=== PATIENT | female | born 1935 | race Asian ===

== ENCOUNTER → 2024-06-12 | Outpatient (CLI) | payer MEDICARE, MEDICAID, SELFPAY ==
[2024-06-12 10:11] LABS: Collection Type, Urine Clean Catch
[2024-06-12 10:13] LABS: OBS Card Expiration Date 2026-09; OBS Card Lot # 23001; OBS Performed By LAB; OBS QC OK? Yes
[2024-06-12 10:50] LABS: Bilirubin,Urine Negative (Negative); Blood,Urine Negative (Negative); Clarity,Urine Clear (Clear/Hazy); Color,Urine Lt-Yellow (Lt Yel-Yel); Glucose, Urine Negative (Negative); Ketones,Urine Negative (Negative); Leukocyte Esterase,Urine Negative (Negative); Nitrite,Urine Negative (Negative); PH,Urine 6.5 (5.0-7.0); Protein,Urine Trace (Neg - Trace); RBC,Urine 2 /hpf (0-3); Specific Gravity,Urine 1.014 (1.001-1.035); Squamous Epithelial Cell,Urine 1 /hpf (0-5); Urobilinogen,Urine Negative mg/dL (0.0-1.0); WBC,Urine 1 /hpf (0-5)
[2024-06-12 10:54] LABS: Glucose Estimated Average 146 mg/dL (80-131); Hemoglobin A1C 6.7 % Hgb (4.8-6.0)
[2024-06-12 11:41] LABS: Alanine Aminotransferase 18 U/L (10-49); Albumin, Serum 4.6 gm/dL (3.4-4.8); Albumin/Globulin Ratio 1.6 (1.2-2.2); Alkaline Phosphatase 64 U/L (46-116); Anion Gap 8 (7-16); Aspartate Amino Transferase 11 U/L (0-34); BUN/Creatinine Ratio 20 Ratio (12-20); Bilirubin,Total 0.4 mg/dL (0.3-1.2); Blood Urea Nitrogen 14 mg/dL (9-23); Calcium 9.8 mg/dL (8.3-10.6); Calcium (Corrected) 9.8 mg/dL (8.5-10.1); Carbon Dioxide 27.4 mMol/L (20.0-31.0); Cardiac Risk Estimate 4.1 RATIO (3.7-5.6); Chloride 103 mMol/L (98-107); Cholesterol 220 mg/dL (132-200); Creatinine (Component) 0.7 mg/dL (0.6-1.3); Globulin 2.8 gm/dL (2.3-3.5); Glucose 113 mg/dL (74-106); HDL Cholesterol 54 mg/dL (40-60); LDL Cholesterol,Calculated 122 mg/dL (0-130); Osmolality,Calculated 277 (275-295); Potassium 4.6 mMol/L (3.4-5.1); Sodium 138 mMol/L (136-145); Total Protein 7.4 gm/dL (5.7-8.2); Triglycerides 219 mg/dL (30-150); eGFR > 60 See Note
[2024-06-12 13:45] LABS: OBS Developer Lot # 23003; Occult Blood, Stool Negative (Negative); Occult Blood, Stool #2 Negative (Negative); Occult Blood, Stool #3 Negative (Negative)
== END | disposition home or self-care (01) ==
LOC: COPL 09:10
PROVIDERS: PCP Internal Medicine; Referring Provider Internal Medicine; Visit Provider Internal Medicine
DX: I10 Essential (primary) hypertension (principal); E78.5 Hyperlipidemia, unspecified; E11.9 Type 2 diabetes mellitus without complications; Z12.11 Encounter for screening for malignant neoplasm of colon
CPT/HCPCS: 36415; 80053; 80061; 81001; 82270; 83036

== ENCOUNTER 2024-07-09 02:01 | Emergency (ER) | payer MEDICARE, MEDICAID, SELFPAY ==
[2024-07-09 02:02] VITALS: BMI 25.0
[2024-07-09 02:10] VITALS: BP 127/98; PULSE 123; RESP 18; TEMP 36.8; O2SAT 96
--- NOTE | 2024-07-09 02:17 | XR_ITS ---
Examination: PA and lateral chest 2 views TECHNIQUE: Upright PA and lateral chest 2 views Exam date 9 [facility] 5 2024 228 hours Comparison June 08, 2014 INDICATIONS: Chest pain today tachycardia FINDINGS: Mild elevation posterior left hemidiaphragm Normal heart size Minor atelectasis left base No lobar pneumonia or pulmonary edema IMPRESSION: No lobar pneumonia or pulmonary edema
--- NOTE | 2024-07-09 02:18 | PD.EDRME ---
Rapid Medical Screening Exam RME Arrival date/time: 07/09/24 02:01 89-year-old female with past medical history of diabetes and hypertension with recent change of blood pressure medication presents emergency department complaining of palpitations that started at 8 PM last night. Chief Complaint: General Adult/Misc Complain Vital signs: Vital Signs Temperature 98.2 F 07/09/24 02:10 Pulse Rate 123 H 07/09/24 02:10 Respiratory Rate 18 07/09/24 02:10 Blood Pressure 127/98 H 07/09/24 02:10 Pulse Oximetry (%) 96 07/09/24 02:10 Oxygen Delivery Method Room Air 07/09/24 02:10 Vital signs reviewed by provider: Yes
[2024-07-09 03:03] LABS: Basophils # (Auto) 0.1 Thou/mm3 (0.0-0.2); Basophils % (Auto) 1 % (0-2.5); Eosinophils # (Auto) 0.2 Thou/mm3 (0.0-0.5); Eosinophils % (Auto) 2 % (0-10); Hematocrit 40.7 % (36.0-46.0); Hemoglobin 13.8 g/dL (12.0-16.0); Immature Granulocytes % (Auto) 0 % (0-0); Immature Granulocytes Auto 0.03 Thou/mm3 (0.00-0.00); Lymphocytes # (Auto) 1.9 Thou/mm3 (1.0-4.8); Lymphocytes % (Auto) 19 % (10-50); Mean Corpuscular HGB Conc 33.9 g/dl (31.0-37.0); Mean Corpuscular Hemoglobin 27.5 pg (25.0-35.0); Mean Corpuscular Volume 81 fL (80-100); Monocytes # (Auto) 0.7 Thou/mm3 (0.0-0.8); Monocytes % (Auto) 7 % (0-12); Neutrophils # (Auto) 6.8 Thou/mm3 (1.8-7.7); Neutrophils % (Auto) 71 % (37-80); Nucleated Red Blood Cell % 0 /100 WBC (0); Platelet Count 288 Thou/mm3 (140-440); RDW Standard Deviation 41.4 fL (36.4-46.3); Red Blood Count 5.01 Miln/mm3 (4.00-5.20); White Blood Count 9.6 Thou/mm3 (3.6-11.0)
[2024-07-09 03:18] LABS: B-Type Natriuretic Peptide 36 pg/mL (0-100); INR 0.9 (0.9-1.3); Partial Thromboplastin Time 29.9 Seconds (22.0-36.0); Prothrombin Time 10.2 Seconds (9.0-12.2)
[2024-07-09 03:19] LABS: Alanine Aminotransferase 15 U/L (10-49); Albumin, Serum 4.9 gm/dL (3.4-4.8); Albumin/Globulin Ratio 1.4 (1.2-2.2); Alkaline Phosphatase 62 U/L (46-116); Anion Gap 9 (7-16); Aspartate Amino Transferase 23 U/L (0-34); BUN/Creatinine Ratio 19 Ratio (12-20); Bilirubin,Total 0.4 mg/dL (0.3-1.2); Blood Urea Nitrogen 13 mg/dL (9-23); Calcium 10.2 mg/dL (8.3-10.6); Calcium (Corrected) 10.2 mg/dL (8.5-10.1); Carbon Dioxide 24.6 mMol/L (20.0-31.0); Chloride 98 mMol/L (98-107); Creatinine (Component) 0.7 mg/dL (0.6-1.3); Estimated Creatinine Clearance 43.5 mL/min (>60); Globulin 3.4 gm/dL (2.3-3.5); Glucose 150 mg/dL (74-106); Magnesium 1.4 mg/dL (1.6-2.6); Osmolality,Calculated 267 (275-295); Potassium 3.9 mMol/L (3.4-5.1); Sodium 132 mMol/L (136-145); Total Protein 8.3 gm/dL (5.7-8.2); Troponin I 0.034 ng/mL (0.0-0.045); eGFR > 60 See Note
[2024-07-09 03:59] LABS: Collection Type, Urine Clean Catch
[2024-07-09 04:03] LABS: Bilirubin,Urine Negative (Negative); Blood,Urine Negative (Negative); Clarity,Urine Clear (Clear/Hazy); Color,Urine Colorless (Lt Yel-Yel); Glucose, Urine Negative (Negative); Ketones,Urine Negative (Negative); Leukocyte Esterase,Urine Positive (Negative); Nitrite,Urine Negative (Negative); Protein,Urine Trace (Neg - Trace); RBC,Urine 1 /hpf (0-3); Specific Gravity,Urine 1.008 (1.001-1.035); Squamous Epithelial Cell,Urine 1 /hpf (0-5); Urobilinogen,Urine Negative mg/dL (0.0-1.0); WBC,Urine 1 /hpf (0-5)
--- NOTE | 2024-07-09 05:39 | PC.NURSE ---
Pt to room 4 at this time from lobby; assumed care of pt.
[2024-07-09 05:55] VITALS: PULSE 87
[2024-07-09 05:57] VITALS: BP 181/78; PULSE 87; RESP 18; O2SAT 97
[2024-07-09 06:30] VITALS: BP 185/93; PULSE 85; RESP 20; O2SAT 95
--- NOTE | 2024-07-09 07:03 | PC.NURSE ---
Dr. Layton at the bedside at this time.
[2024-07-09 07:29] VITALS: PULSE 78
[2024-07-09 07:47] VITALS: BP 178/77; PULSE 77; RESP 16; TEMP 36.6; O2SAT 99
--- NOTE | 2024-07-09 07:53 | EDNOTE_ITS ---
ED Arrhythmia Palp. RME/HPI General Chief Complaint: General Adult/Misc Complain Stated Complaint: FEELS HEART BEATING FAST Time Seen by Provider: 07/09/24 06:51 Arrival date/time: 07/09/24 02:01 RME / HPI RME / HPI narrative: 07/09/24 02:01 89-year-old female with past medical history of diabetes and hypertension with recent change of blood pressure medication presents emergency department complaining of palpitations that started at [address] RUIZ MAIN ED EVALUATION 89 year old female with history of diabetes and hypertension presents to the ED for evaluation of palpitations beginning last night. Palpitations described as my heart is beating funny . Reportedly had a scheduled appointment with PCP Dr. Tracy yesterday to discuss elevated blood pressure readings at home and was started on Hydralazine; which she took the first dose of last night. Denies any chest pain, cough, shortness of breath, or other associated symptoms. Denies any history of similar palpitations. Related Data Home Medications ?Medication ?Instructions ?Recorded ?Confirmed amlodipine 10 mg tablet 10 mg PO QDAY 03/16/1803/16 aspirin 325 mg tablet 325 mg PO QDAY 03/16/1803/04 losartan 100 mg tablet 100 mg PO QDAY 03/16/1803/04 metformin 500 mg tablet 500 mg PO BID 03/16/1803/16 Previous Rx's ?Medication ?Instructions ?Recorded naproxen 500 mg tablet (Naprosyn) 500 mg PO BID PRN pa in #20 tabs 03/16/18 Allergies Allergy/AdvReac Type Severity Reaction Status Date / Time No Known Allergies Allergy Verified 07/09/24 02:05 Review of Systems Review of Systems Narrative Review of Systems: Gen: No fever, no chills, no weight loss EYES: No discharge, no visual changes, no pain HEENT: No ear pain, no congestion, no sore throat PULM: no shortness of breath, no cough, no congestion CV: No chest pain, +palpitations, no chest tightness GI: No nausea, no vomiting, no diarrhea, no pain, no constipation : No frequency, no urgency,? no dysuria Musc/skel: No joint pain, no back pain Skin: No rash, no ecchymosis, no lesions Neuro: No weakness, no headache Past Medical History Past Medical History CARDIAC: Positive Cardiac Disorders and Hypertension; Negative Congestive Heart Failure RESPIRATORY: Negative Chronic Obstructive Pulmonary Disease (COPD) GENITOURINARY: Negative Renal Disease ENDOCRINE: Positive Diabetes Mellitus Type 2; Negative Diabetes Mellitus Type 1 Social History SMOKING STATUS: Never smoker ED Exam Narrative Physical exam: GENERAL APPEARANCE: AxOx4, no obvious distress, nontoxic appearing HEENT: NC, AT. MMM. EOMI, clear conjunctiva, oropharynx clear. NECK: Supple without lymphadenopathy. No stiffness or restricted ROM. HEART: Normal rate and regular rhythm, normal S1/S1, no m/r/g LUNGS: CTAB, moving air well. No crackles or wheezes are heard. ABDOMEN: Soft, nontender, nondistended with good bowel sounds heard. BACK: No midline C/T/L spine pain or deformity, No CVAT, no obvious deformity. EXTREMITIES: Without cyanosis, clubbing or edema. MUSCULOSKELETAL: FROM of all major joints, no chest tenderness NEUROLOGICAL: Grossly nonfocal. Alert and oriented, moving all 4 extremities. CN not formally tested but appear grossly intact. Skin: Warm and dry without any rash. Course Course Course Narrative: chest xray ordered to help determine etiology of palpitations. Quality Measures none Orders Category Date Time Status EKG (ED ONLY) *Do not use* NOW Care 07/09/24 02:17 Completed EKG (ED Only) Stat Exams 07/09/24 02:17 Ordered XR chest 2V Stat Exams 07/09/24 02:17 Completed B-Type Natriuretic Peptide Stat Lab 07/09/24 02:48 Completed CBC Stat Lab 07/09/24 02:48 Completed Comprehensive Metabolic Panel Stat Lab 07/09/24 02:48 Completed Magnesium Stat Lab 07/09/24 02:48 Completed Partial Thromboplastin Time Stat Lab 07/09/24 02:48 Completed Prothrombin Time with INR Stat Lab 07/09/24 02:48 Completed Troponin I Stat Lab 07/09/24 02:48 Completed Urinalysis Stat Lab 07/09/24 03:50 Completed Reevaluation(s) Reevaluation #1: Patient remains clinically stable throughout the emergency department visit. We reviewed all the results, analysis, and treatment plans. I advised patient hold the Hydralazine this morning and contact her PCP today. Patient is amenable to discharge. Strict return precautions were outlined. Patient was discharged in stable condition. Time: 07:30 Vital Signs Vital signs: Vital Signs Temperature 98.2 F 07/09/24 02:10 Pulse Rate 123 H 07/09/24 02:10 Respiratory Rate 18 07/09/24 02:10 Blood Pressure 127/98 H 07/09/24 02:10 Pulse Oximetry (%) 96 07/09/24 02:10 Oxygen Delivery Method Room Air 07/09/24 02:10 Arrhythmia/Palpitations MDM Narrative MDM Narrative:: [place] am scribing for and in the presence of Dr. Ruiz. Patient data External records reviewed[place] [facility] [place] (I reviewed ED visit on 03/17/2018) Clinical information provided by:: patient Social determinants that could affect healthcare access:: none Patient has the following chronic illnesses:: HTN, DM How is presenting disease/condition affected by chronic disease/condition?: exacerbated by Evaluation data The following diagnostics were reviewed and interpreted by me:: lab results, radiology exam(s) and EKG tracing(s) (EKG @ 02:14 shows sinus tachycardia, rate 100, no acute ST or T-wave changes, no STEMI. ) Lab and/or radiology exams considered but not ordered:: None Interpretation Summary: Ordering Physician: Angelita GARCIA)Angel Date of Service: 07/09/24 Procedure(s): XR chest 2V Accession Number(s): [id number] cc: Shantanu Carlisle MD; Angelita GARCIA)Angel; Isak Tracy MD~ Examination: PA and lateral chest 2 views TECHNIQUE: Upright PA and lateral chest 2 views Exam date [address] [place] [address] 2024 hours Comparison June 08, 2014 INDICATIONS: Chest pain today tachycardia FINDINGS: Mild elevation posterior left hemidiaphragm Normal heart size Minor atelectasis left base No lobar pneumonia or pulmonary edema IMPRESSION: No lobar pneumonia or pulmonary edema Dictated By: Shantanu Carlisle MD Signed By: <Electronically signed by Shantanu Carlisle MD in OV> 07/09/24 0750 Medications / Prescriptions Medications or Prescriptions considered but not ordered:: None Medication administrations:: None Consultations Consultation(s) initiated? (list below): No Diagnosis Differential diagnosis arrhythmia/palpitations: palpitations, anxiety, sinus tachycardia, artial fibrillation, artial flutter, supraventricular tachycardia and ventricular tachycardia Most likely diagnosis given after review of the tests above:: Heart palpitations Admission Indicated Admission indicated?: not indicated Admission Request Was there a request for admission?: No Disposition Plan Disposition Plan: Discharge Discharge Attestation Discharge Attestation: The patient and all family members were given an opportunity to ask questions and understood the discharge instructions. Discharge instructions specifically effects, indications for sooner follow up or return to the emergency department, and the expected course of current diagnosis. Patient condition: Stable Discharge Plan Plan Patient Disposition: HOME (Self Care) Prescriptions/Referrals Prescriptions/Med Rec: No Action naproxen [Naprosyn] 500 mg tablet 500 mg PO BID PRN (Reason: pain) Qty: 20 0RF metformin 500 mg Tablet 500 mg PO BID amlodipine 10 mg Tablet 10 mg PO QDAY losartan 100 mg Tablet 100 mg PO QDAY aspirin 325 mg Tablet 325 mg PO QDAY Referrals: Isak Tracy MD [Primary Care Provider] - In 1 week Problem List Clinical Impression: Heart palpitations Patient/Caregiver Discharge Instructions Education Materials: ED Palpitations Additional Instructions: Follow-up with your primary care doctor, , today to review whether or not she wants you to continue the new medicines. It is unclear as to whether or not you had a side effect to the new medicine. Feel free return to the emergency department sooner symptoms worsen or if notes any new, concerning issues. Print Language: Slovak Stand Alone Forms: Vicky Award Info., Patient Portal Info Letter
== END 2024-07-09 07:47 | disposition home or self-care (01) ==
PROVIDERS: Emergency Provider Emergency Medicine; PCP Internal Medicine
DX: R00.2 Palpitations (principal); R00.0 Tachycardia, unspecified; I10 Essential (primary) hypertension; E11.9 Type 2 diabetes mellitus without complications
CPT/HCPCS: 36415; 71046; 80053; 81001; 83735; 83880; 84484; 85025; 85610; 85730; 93005; 99283

== ENCOUNTER → 2024-07-09 | Outpatient (CLI) | payer MEDICARE, MEDICAID, SELFPAY ==
[2024-07-09 15:22] LABS: Albumin, Serum 4.7 gm/dL (3.4-4.8); Anion Gap 8 (7-16); BUN/Creatinine Ratio 14 Ratio (12-20); Blood Urea Nitrogen 10 mg/dL (9-23); Calcium 9.5 mg/dL (8.3-10.6); Calcium (Corrected) 9.5 mg/dL (8.5-10.1); Carbon Dioxide 27.8 mMol/L (20.0-31.0); Chloride 97 mMol/L (98-107); Creatinine (Component) 0.7 mg/dL (0.6-1.3); Glucose 117 mg/dL (74-106); Osmolality,Calculated 266 (275-295); Phosphorous 3.5 mg/dL (2.4-5.1); Sodium 133 mMol/L (136-145); Uric Acid 5.5 mg/dL (3.1-7.8); eGFR > 60 See Note
[2024-07-22 06:57] LABS: Renin Activity, Plasma* 0.95 ng/mL/h (0.25-5.82)
== END | disposition home or self-care (01) ==
PROVIDERS: PCP Internal Medicine; Referring Provider Internal Medicine; Visit Provider Internal Medicine
DX: I10 Essential (primary) hypertension (principal)
CPT/HCPCS: 36415; 80069; 82533; 84244; 84550

== ENCOUNTER → 2024-07-11 | Outpatient (CLI) | payer MEDICARE, MEDICAID, SELFPAY ==
[2024-07-11 12:24] LABS: Misc Send Out* See Sep Rpt
[2024-07-11 13:40] LABS: Sodium, Urine Volume 1550 mL/24hr (600-1800)
[2024-07-11 13:42] LABS: Sodium,24hr Urine 40 mEq/24hr (40-220); Sodium,Urine 26 mMol/L (20-110)
[2024-07-16 17:49] LABS: Cortisol, 24-Hr Volume 1600 mL
[2024-07-16 23:35] LABS: Aldosterone, 24-Hr Volume 1600 mL
[2024-07-17 06:28] LABS: Aldosterone, 24-Hour Urine 3.5 mcg/24 h; Cortisol, Free, 24-Hour Urine 31.7 mcg/24 h (4.0-50.0); Creatinine, 24-Hour Urine 0.58 g/24 h (0.50-2.15); Creatinine, 24-Hour Urine 0.59 g/24 h (0.50-2.15)
[2024-07-17 13:52] LABS: Cat VMA Volume, 24Hr 1600 mL
[2024-07-18 06:45] LABS: Calculated Total (E+NE) 15 mcg/24 h (26-121); Creatinine, 24-Hour Urine 0.58 g/24 h (0.50-2.15); Dopamine, 24 hr Urine 107 mcg/24 h (52-480); Epinephrine, 24-Hour Urine <3 mcg/24 h (2-24); Norepinephrine, 24 hr Ur 15 mcg/24 h (15-100); VMA, 24-Hour Urine 3.1 mg/24 h (6 OR LESS)
[2024-07-18 13:47] LABS: Total Volume, 24H Urine 1600 mL
[2024-07-22 06:52] LABS: Dopamine, 24hr Urine* 108 mcg/24 h (52-480)
== END | disposition home or self-care (01) ==
LOC: SLDO 11:22
PROVIDERS: PCP Internal Medicine; Referring Provider Internal Medicine; Visit Provider Internal Medicine
DX: I10 Essential (primary) hypertension (principal)
CPT/HCPCS: 36415; 82088; 82384; 82530; 82542; 82570; 83835; 84300; 84585

== ENCOUNTER 2024-07-12 14:01 | Inpatient (IN) | payer OTHER, MEDICAID, MEDICARE, SELFPAY ==
[2024-07-12] VITALS (7 sets, daily range): BP systolic 138–179; BP diastolic 61–77; PULSE 82–97; RESP 16–23; TEMP 36.8–37.6; O2SAT 95–97; BMI 25.0
--- NOTE | 2024-07-12 14:38 | EKG_ITS ---
[facility] Test Date: 2024-07-12 Pat Name: ELIOT HAJI Department: Room: - Gender: Female [facility] [employer]: : 1935 Requested By: Anat Loaiza ([facility]) Frannie Order Number: [id number] Reading MD: Anat Loaiza ([facility]) M Measurements Intervals Imbler Rate: 85 P: 50 RI: 148 QRS: -35 QRSD: 82 T: 48 QT: 357 QTc: 425 Interpretive Statements SINUS RHYTHM LEFT AXIS DEVIATION [QRS AXIS < -30] NONSPECIFIC T-WAVE ABNORMALITY No previous ECG available for comparison /store/S0/[id number]/ecg/[id number].pdf
--- NOTE | 2024-07-12 14:38 | XR_ITS ---
Examination: AP chest single view Technique one AP portable upright chest single view Exam date and time: July 12, 2024 1528 hrs. Comparison July 09, 2024 Indications: Chest pain cardiac irregularity beginning this morning Findings: Mild prominence left ventricle Mild vascular congestion Elevation left hemidiaphragm No geno lobar pneumonia No pulmonary edema Impression: Mild vascular congestion
--- NOTE | 2024-07-12 14:38 | PD.EDRME ---
Rapid Medical Screening Exam RME Arrival date/time: 07/12/24 14:01 89-year-old female presents emergency department complaints of feeling chest pain, heart fluttering since this a.m. I have greeted and performed a focused initial assessment of this patient. Initial appropriate labs ordered at this time. A comprehensive ED assessment and evaluation of the patient and analysis of all test and completion of medical decision making process will be conducted by additional ED provider. Chief Complaint: General Adult/Misc Complain Time Seen by Provider: 07/12/24 14:27 Vital signs: Vital Signs Temperature 98.3 F 07/12/24 14:13 Pulse Rate 91 07/12/24 14:13 Respiratory Rate 16 07/12/24 14:13 Blood Pressure 138/61 H 07/12/24 14:13 Pulse Oximetry (%) 97 07/12/24 14:13 Oxygen Delivery Method Room Air 07/12/24 14:13
[2024-07-12 15:29] LABS: Basophils % (Auto) 0 % (0-2.5); Eosinophils # (Auto) 0.1 Thou/mm3 (0.0-0.5); Eosinophils % (Auto) 1 % (0-10); Hematocrit 34.3 % (36.0-46.0); Immature Granulocytes % (Auto) 0 % (0-0); Immature Granulocytes Auto 0.02 Thou/mm3 (0.00-0.00); Lymphocytes # (Auto) 1.3 Thou/mm3 (1.0-4.8); Lymphocytes % (Auto) 19 % (10-50); Mean Corpuscular Hemoglobin 28.1 pg (25.0-35.0); Mean Corpuscular Volume 80 fL (80-100); Monocytes # (Auto) 0.6 Thou/mm3 (0.0-0.8); Monocytes % (Auto) 9 % (0-12); Neutrophils # (Auto) 4.6 Thou/mm3 (1.8-7.7); Neutrophils % (Auto) 70 % (37-80); Nucleated Red Blood Cell % 0 /100 WBC (0); Platelet Count 278 Thou/mm3 (140-440); RDW Standard Deviation 41.1 fL (36.4-46.3); Red Blood Count 4.27 Miln/mm3 (4.00-5.20); White Blood Count 6.5 Thou/mm3 (3.6-11.0)
[2024-07-12 15:33] LABS: B-Type Natriuretic Peptide 188 pg/mL (0-100)
[2024-07-12 15:37] LABS: INR 0.9 (0.9-1.3); Prothrombin Time 10.1 Seconds (9.0-12.2)
[2024-07-12 15:39] LABS: Alanine Aminotransferase 14 U/L (10-49); Albumin, Serum 4.4 gm/dL (3.4-4.8); Albumin/Globulin Ratio 1.6 (1.2-2.2); Alkaline Phosphatase 57 U/L (46-116); Anion Gap 9 (7-16); Aspartate Amino Transferase 17 U/L (0-34); BUN/Creatinine Ratio 24 Ratio (12-20); Bilirubin,Total 0.3 mg/dL (0.3-1.2); Blood Urea Nitrogen 22 mg/dL (9-23); Carbon Dioxide 22.7 mMol/L (20.0-31.0); Chloride 87 mMol/L (98-107); Creatinine (Component) 0.9 mg/dL (0.6-1.3); Estimated Creatinine Clearance 33.8 mL/min (>60); Globulin 2.8 gm/dL (2.3-3.5); Glucose 150 mg/dL (74-106); Lipase 23 U/L (12-53); Magnesium 1.4 mg/dL (1.6-2.6); Osmolality,Calculated 246 (275-295); Potassium 3.9 mMol/L (3.4-5.1); Total Protein 7.2 gm/dL (5.7-8.2); Troponin I < 0.020 ng/mL (0.0-0.045); eGFR > 60 See Note
[2024-07-12 15:52] LABS: Sodium 119 mMol/L (136-145)
--- NOTE | 2024-07-12 15:57 | PD.EDCHEST ---
ED Chest Pain RME/HPI General Chief Complaint: General Adult/Misc Complain Stated Complaint: low blood pressure at home 81/49, feels tired Time Seen by Provider: 07/12/24 14:27 Arrival date/time: 07/12/24 14:01 RME / HPI RME / HPI narrative: 07/12/24 14:01 89-year-old female presents emergency department complaints of feeling chest pain, heart fluttering since this a.m. I have greeted and performed a focused initial assessment of this patient. Initial appropriate labs ordered at this time. A comprehensive ED assessment and evaluation of the patient and analysis of all test and completion of medical decision making process will be conducted by additional ED provider. DR. ANNE MAIN ED EVALUATION: 89 year old female presents to the Emergency Department with complaint of PMHx: Hypertension and diabetes. Right nephrectomy. Social Hx: No tobacco, alcohol, or substance use. Related Data Home Medications ?Medication ?Instructions ?Recorded ?Confirmed amlodipine 10 mg tablet 10 mg PO QDAY 03/16/18 03/16/18 aspirin 325 mg tablet 325 mg PO QDAY 03/16/18 03/16/18 losartan 100 mg tablet 100 mg PO QDAY 03/16/18 03/16/18 metformin 500 mg tablet 500 mg PO BID 03/16/18 03/16/18 Previous Rx's ?Medication ?Instructions ?Recorded naproxen 500 mg tablet (Naprosyn) 500 mg PO BID PRN pain #20 tabs 03/16/18 Allergies Allergy/AdvReac Type Severity Reaction Status Date / Time No Known Allergies Allergy Verified 07/12/24 14:05 Review of Systems Review of Systems Systems Reviewed: All systems reviewed, normal except as documented Narrative Review of Systems: GEN: No fever, no chills, no weight loss EYES: No discharge, no visual changes, no pain HEENT: No ear pain, no congestion, no sore throat PULM: No shortness of breath, no cough, no congestion CV: No chest pain, no dyspnea on exertion, no palpitations GI: No nausea, no vomiting, no diarrhea, no pain, no constipation : No frequency, no urgency and no dysuria MUSC/SKEL: No joint pain, no back pain SKIN: No rash PSYCH: No hallucinations, no depression HEME/LYMPH: No easy bleeding or bruising tendencies NEURO: No weakness, no headache Past Medical History Past Medical History CARDIAC: Positive Cardiac Disorders and Hypertension ENDOCRINE: Positive Diabetes Mellitus Type 2 Surgical History SURGICAL: Positive Nephrectomy (R kidney removal) Social History SMOKING STATUS: Never smoker SUBSTANCE USE: does not use ALCOHOL: Never ED Exam Narrative Physical exam: GENERAL APPEARANCE: alert and oriented x 4, well-developed, well-nourished, no acute distress VITALS: All vitals were reviewed and the pulse ox is 97% on room air, which is normal according to my interpretation. HEENT: Normocephalic, atraumatic; pupils equal, round, reactive to light; EOMI; mucous membranes pink, moist; oropharynx clear NECK: Supple LUNGS: CTABL; no wheezes, no rales, no rhonchi HEART: Regular rate, regular rhythm; normal S1, S2; no murmurs ABDOMEN: non distended; normal BS; soft, no tenderness, no guarding, no rebound; no masses, no organomegaly, no hernia BACK: no CVA tenderness EXTREMITIES: atraumatic; no edema NEUROLOGIC: awake; alert and oriented x4; cranial nerves II-XII grossly intact; no focal sensory or motor deficits PSYCHIATRIC: appropriate mood and affect SKIN: warm, dry, normal color; no rashes Course Quality Measures none Orders Category Date Time Status EKG (ED ONLY) *Do not use* NOW Care 07/12/24 14:38 Completed EKG (ED Only) Stat Exams 07/12/24 14:38 Draft XR chest 1V portable Stat Exams 07/12/24 14:38 Completed B-Type Natriuretic Peptide Stat Lab 07/12/24 14:56 Completed CBC Stat Lab 07/12/24 14:56 Completed Comprehensive Metabolic Panel Stat Lab 07/12/24 14:56 Completed Lipase Stat Lab 07/12/24 14:56 Completed Magnesium Stat Lab 07/12/24 14:56 Completed Prothrombin Time with INR Stat Lab 07/12/24 14:56 Completed Troponin I Stat Lab 07/12/24 14:56 Completed Sodium Chloride 0.9% 1000 ml [Ns] 1,000 ml Med 07/12/24 16:05 Discontinued IV 40 mls/hr Vital Signs Vital signs: Vital Signs Temperature 98.3 F 07/12/24 14:13 Pulse Rate 91 07/12/24 14:13 Respiratory Rate 16 07/12/24 14:13 Blood Pressure 138/61 H 07/12/24 14:13 Pulse Oximetry (%) 97 07/12/24 14:13 Oxygen Delivery Method Room Air 07/12/24 14:13 Chest Pain MDM Narrative MDM Narrative:: [place] am scribing for and in the presence of Dr. Anne. Patient data External records reviewed:: [facility] previous records (Reviewed last ED visit dated 07/09/24, discharged with the following: Heart palpitations.) Clinical information provided by:: patient Social determinants that could affect healthcare access:: none Patient has the following chronic illnesses:: Hypertension and diabetes. Right nephrectomy. How is presenting disease/condition affected by chronic disease/condition?: exacerbated by Evaluation data The following diagnostics were reviewed and interpreted by me:: lab results, radiology exam(s) and EKG tracing(s) Lab and/or radiology exams considered but not ordered:: none Interpretation Summary: EKG#1: EKG at 1442 hours. Interpreted by me: sinus rhythm, rate 85, baseline mild poor R wave progression, mild IVCD, no acute ischemic changes Medications / Prescriptions Medications or Prescriptions considered but not ordered:: none Medication administrations:: Medication Administration History Acetaminophen (Acetaminophen 325 Mg Tablet) 650 mg PO Q6H PRN PRN Reason: Pain 1-3 and/or Fever >100.1 Stop: 08/11/24 17:24 Dextrose (Dextrose 50%-Water Inj 50 Ml Syringe) 25 ml IV Q15MIN PRN PRN Reason: BG 50-70 responsive npo pt Stop: 08/11/24 17:38 Dextrose (Dextrose 50%-Water Inj 50 Ml Syringe) 50 ml IV Q15MIN PRN PRN Reason: BG <50 OR BG <70 & pt unresponsive Stop: 08/11/24 17:38 Glucagon (Glucagon Inj 1 Mg Vial) 1 mg IM Q15MIN PRN PRN Reason: BG <70, and no IV access Heparin Sodium (Porcine) (Heparin Sod Inj 5000 Unit/Ml Vial) 5,000 unit SC Q8HR JOE Stop: 07/26/24 21:59 Sodium Chloride (Ns) 1,000 mls @ 75 mls/hr IV .[id number] ONE Stop: 07/13/24 05:24 Last Admin: 07/12/24 17:36 Dose: 75 mls/hr Documented By: GM Magnesium Sulfate (Magnesium Sulfate Ivpb) 4 gm in 50 mls @ 12.5 mls/hr IV X1 ONE Stop: 07/12/24 21:39 Insulin Human Lispro (Insulin Lispro (Admelog) 1 Unit/0.01 Ml Unit) 0 unit SC ACHS [facility]; Protocol Stop: 08/11/24 20:59 Nifedipine (Nifedipine Xl 30 Mg Tabcr) 90 mg PO QDAY JOE Stop: 08/12/24 08:59 Ondansetron HCl (Ondansetron Inj 2 Mg/Ml Inj 2 Ml) 4 mg IV Q6H PRN; Protocol PRN Reason: NAUSEA OR VOMITING Stop: 08/11/24 17:24 Sennosides (Senna Tablet) 1 tab PO QDAY JOE; Protocol Stop: 08/12/24 08:59 Discontinued Medications Sodium Chloride (Ns) 1,000 mls @ 40 mls/hr IV .Q24H ONE Stop: 07/13/24 16:04 Last Infusion: 07/12/24 17:35 Dose: 0 mls/hr Documented By: Admin: 07/12/24 16:16 Dose: 40 mls/hr Documented By: CHI see above if any Consultations Consultation(s) initiated? (list below): Yes Consultation #1 (Physician, Specialty, Details): Discussed test HPI, PMHx, lab, radiology results and/or management with hospitalist. Will admit for further evaluation and management. Accepts patient for admission. Time: 17:20 Diagnosis Chest Pain Differential Diagnosis: atypical chest pain, costochondritis, chest pain and other (palpitations) Most likely diagnosis given after review of the tests above:: Hyponatremia Restless Hypomagnesemia Admission Indicated Admission indicated?: indicated Admission Request Was there a request for admission?: Yes Admission Attestation Admission request attestation: Discussed case with [] from Hospitalist service regarding admission. Discussed patients ED course, exam findings, labs, and radiology results. The Hospitalist [agrees,declines] to accept the patient for admission. Disposition Plan Disposition Plan: Admit Discharge Plan Plan Patient Disposition: Admit Acute Care w/in Hospital Problem List Clinical Impression: Hyponatremia, Restless, Hypomagnesemia
--- NOTE | 2024-07-12 16:00 | PD.EDWEAK ---
ED Weakness RME/HPI General Chief complaint: General Adult/Misc Complain Stated complaint: low blood pressure at home 81/49, feels tired Time Seen by Provider: 07/12/24 14:27 Arrival date/time: 07/12/24 14:01 RME / HPI RME / HPI Narrative: 07/12/24 14:01 89-year-old female presents emergency department complaints of feeling chest pain, heart fluttering since this a.m. I have greeted and performed a focused initial assessment of this patient. Initial appropriate labs ordered at this time. A comprehensive ED assessment and evaluation of the patient and analysis of all test and completion of medical decision making process will be conducted by additional ED provider. DR. BULLOCK MAIN ED EVALUATION: 89 year old female presents to the Emergency Department with complaint of restlessness and shaking since starting new medications 3 days ago. Patient has a history of hypertension takes losartan per Dr. Tracy and clonidine per Dr. Sultana. Patient states she was seen in the ED 3 days ago then followed up with Dr. Tracy who started her on nifedipine and hydralazine. On the same day she followed up with Dr. Sultana who started her on hydrochlorothiazide. PMHx: Hypertension and diabetes Social Hx: No tobacco, alcohol, or substance use. Related Data Home Medications ?Medication ?Instructions ?Recorded ?Confirmed amlodipine 10 mg tablet 10 mg PO QDAY 03/16/18 03/16/18 aspirin 325 mg tablet 325 mg PO QDAY 03/16/18 03/16/18 losartan 100 mg tablet 100 mg PO QDAY 03/16/18 03/16/18 metformin 500 mg tablet 500 mg PO BID 03/16/18 03/16/18 Previous Rx's ?Medication ?Instructions ?Recorded naproxen 500 mg tablet (Naprosyn) 500 mg PO BID PRN pain #20 tabs 03/16/18 Allergies Allergy/AdvReac Type Severity Reaction Status Date / Time No Known Allergies Allergy Verified 07/12/24 14:05 Review of Systems Review of Systems Systems Reviewed: All systems reviewed, normal except as documented Narrative Review of Systems: GEN: No fever, no chills, no weight loss EYES: No discharge, no visual changes, no pain HEENT: No ear pain, no congestion, no sore throat PULM: No shortness of breath, no cough, no congestion CV: No chest pain, no dyspnea on exertion, no palpitations GI: No nausea, no vomiting, no diarrhea, no pain, no constipation : No frequency, no urgency and no dysuria MUSC/SKEL: No joint pain, no back pain SKIN: No rash PSYCH: No hallucinations, no depression HEME/LYMPH: No easy bleeding or bruising tendencies NEURO: No weakness, no headache, + restlessness and shaking (see HPI) Past Medical History Past Medical History CARDIAC: Positive Cardiac Disorders and Hypertension ENDOCRINE: Positive Diabetes Mellitus Type 2 Surgical History SURGICAL: Positive Nephrectomy (R kidney removal) Social History SMOKING STATUS: Never smoker SUBSTANCE USE: does not use ALCOHOL: Never ED Exam Narrative Physical exam: GENERAL APPEARANCE: alert and oriented x 4, well-developed, well-nourished, no acute distress VITALS: All vitals were reviewed and the pulse ox is 97% on room air, which is normal according to my interpretation. HEENT: Normocephalic, atraumatic; pupils equal, round, reactive to light; EOMI; mucous membranes pink, moist; oropharynx clear NECK: Supple LUNGS: CTABL; no wheezes, no rales, no rhonchi HEART: Regular rate, regular rhythm; normal S1, S2; no murmurs ABDOMEN: non distended; normal BS; soft, no tenderness, no guarding, no rebound; no masses, no organomegaly, no hernia BACK: no CVA tenderness EXTREMITIES: atraumatic; no edema NEUROLOGIC: awake; alert and oriented x4; cranial nerves II-XII grossly intact; no focal sensory or motor deficits PSYCHIATRIC: appropriate mood and affect SKIN: warm, dry, normal color; no rashes Course Quality Measures none Orders Category Date Time Status EKG (ED ONLY) *Do not use* NOW Care 07/12/24 14:38 Completed EKG (ED Only) Stat Exams 07/12/24 14:38 Draft XR chest 1V portable Stat Exams 07/12/24 14:38 Completed B-Type Natriuretic Peptide Stat Lab 07/12/24 14:56 Completed CBC Stat Lab 07/12/24 14:56 Completed Comprehensive Metabolic Panel Stat Lab 07/12/24 14:56 Completed Lipase Stat Lab 07/12/24 14:56 Completed Magnesium Stat Lab 07/12/24 14:56 Completed Prothrombin Time with INR Stat Lab 07/12/24 14:56 Completed Troponin I Stat Lab 07/12/24 14:56 Completed Sodium Chloride 0.9% 1000 ml [Ns] 1,000 ml Med 07/12/24 16:05 Discontinued IV 40 mls/hr Vital Signs Vital signs: Vital Signs Temperature 98.3 F 07/12/24 14:13 Pulse Rate 91 07/12/24 14:13 Respiratory Rate 16 07/12/24 14:13 Blood Pressure 138/61 H 07/12/24 14:13 Pulse Oximetry (%) 97 07/12/24 14:13 Oxygen Delivery Method Room Air 07/12/24 14:13 Weakness MDM Narrative MDM Narrative:: Sodium 119 today. Sodium 133 on 07/09/2024. Acute hyponatremia likely cause of current symptoms. Patient data External records reviewed:: [facility] previous records (Reviewed last ED visit dated 07/09/24, discharged with the following: Heart palpitations.) Clinical information provided by:: patient Social determinants that could affect healthcare access:: none Patient has the following chronic illnesses:: Hypertension and diabetes How is presenting disease/condition affected by chronic disease/condition?: exacerbated by Evaluation data The following diagnostics were reviewed and interpreted by me:: lab results, radiology exam(s) and EKG tracing(s) (EKG#1: EKG at 1442 hours. Interpreted by me: sinus rhythm, rate 85, baseline mild poor R wave progression, mild IVCD, no acute ischemic changes) Lab and/or radiology exams considered but not ordered:: none Interpretation Summary: Procedure(s): XR chest 1V portable Accession Number(s): [id number] cc: Shantanu Carlisle MD; Isak Tracy MD; Anat Loaiza~ Examination: AP chest single view Technique one AP portable upright chest single view Exam date and time: July 12, 2024 1528 hrs. Comparison July 09, 2024 Indications: Chest pain cardiac irregularity beginning this morning Findings: Mild prominence left ventricle Mild vascular congestion Elevation left hemidiaphragm No geno lobar pneumonia No pulmonary edema Impression: Mild vascular congestion Dictated By: Shantanu Carlisle MD Medications / Prescriptions Medications or Prescriptions considered but not ordered:: none Medication administrations:: Medication Administration History Acetaminophen (Acetaminophen 325 Mg Tablet) 650 mg PO Q6H PRN PRN Reason: Pain 1-3 and/or Fever >100.1 Stop: 08/11/24 17:24 Dextrose (Dextrose 50%-Water Inj 50 Ml Syringe) 25 ml IV Q15MIN PRN PRN Reason: BG 50-70 responsive npo pt Stop: 08/11/24 17:38 Dextrose (Dextrose 50%-Water Inj 50 Ml Syringe) 50 ml IV Q15MIN PRN PRN Reason: BG <50 OR BG <70 & pt unresponsive Stop: 08/11/24 17:38 Glucagon (Glucagon Inj 1 Mg Vial) 1 mg IM Q15MIN PRN PRN Reason: BG <70, and no IV access Heparin Sodium (Porcine) (Heparin Sod Inj 5000 Unit/Ml Vial) 5,000 unit SC Q8HR JOE Stop: 07/26/24 21:59 Sodium Chloride (Ns) 1,000 mls @ 75 mls/hr IV .[id number] ONE Stop: 07/13/24 05:24 Last Admin: 07/12/24 17:36 Dose: 75 mls/hr Documented By: GM Magnesium Sulfate (Magnesium Sulfate Ivpb) 4 gm in 50 mls @ 12.5 mls/hr IV X1 ONE Stop: 07/12/24 21:39 Insulin Human Lispro (Insulin Lispro (Admelog) 1 Unit/0.01 Ml Unit) 0 unit SC ACHS [facility]; Protocol Stop: 08/11/24 20:59 Nifedipine (Nifedipine Xl 30 Mg Tabcr) 90 mg PO QDAY JOE Stop: 08/12/24 08:59 Ondansetron HCl (Ondansetron Inj 2 Mg/Ml Inj 2 Ml) 4 mg IV Q6H PRN; Protocol PRN Reason: NAUSEA OR VOMITING Stop: 08/11/24 17:24 Sennosides (Senna Tablet) 1 tab PO QDAY [facility]; Protocol Stop: 08/12/24 08:59 Discontinued Medications Sodium Chloride (Ns) 1,000 mls @ 40 mls/hr IV .Q24H ONE Stop: 07/13/24 16:04 Last Infusion: 07/12/24 17:35 Dose: 0 mls/hr Documented By: Admin: 07/12/24 16:16 Dose: 40 mls/hr Documented By: see above Consultations Consultation(s) initiated? (list below): Yes Consultation #1 (Physician, Specialty, Details): Discussed with Dr. Tracy. Reviewed new medications and lab results. Dr. Tracy recommends admitting the patient to the ICU under the care of the extrusion engineer for hypertonic saline. Consultation #2 (Physician, Specialty, Details): Discussed with Dr. Cary, extrusion engineer. Recommends PCP admit the patient to telemetry for further management. Consultation #3 (Physician, Specialty, Details): 1630: Discussed with Dr. Tracy again who states she will discuss with the hospitalist team for admission. Diagnosis Weakness Differential Diagnosis: sepsis, dehydration and other (Restless) Most likely diagnosis given after review of the tests above:: Hyponatremia Restless Hypomagnesemia Admission Indicated Admission indicated?: indicated Admission Request Was there a request for admission?: Yes Admission Attestation Admission request attestation: Discussed case with [] from Hospitalist service regarding admission. Discussed patients ED course, exam findings, labs, and radiology results. The Hospitalist [agrees,declines] to accept the patient for admission. Disposition Plan Disposition Plan: Admit Discharge Plan Plan Patient Disposition: Admit Acute Care w/in Hospital Problem List Clinical Impression: Hyponatremia, Restless, Hypomagnesemia
[2024-07-12] MEDS: SODIUM CHLORIDE 0.9% 1000 ML 1,000 ML 40 ML IV (16:16)
[2024-07-12 17:31] LABS: Collection Type, Urine Clean Catch; Squamous Epithelial Cell,Urine 0 /hpf (0-5)
[2024-07-12] MEDS: SODIUM CHLORIDE 0.9% 1000 ML 1,000 ML 75 ML IV (17:36)
[2024-07-12 17:37] LABS: Bilirubin,Urine Negative (Negative); Blood,Urine Negative (Negative); Clarity,Urine Clear (Clear/Hazy); Color,Urine Colorless (Lt Yel-Yel); Culture Indicated,Urine Not Indicated; Glucose, Urine Negative (Negative); Ketones,Urine Negative (Negative); Leukocyte Esterase,Urine Negative (Negative); Nitrite,Urine Negative (Negative); Protein,Urine Negative (Neg - Trace); RBC,Urine < 1 /hpf (0-3); Specific Gravity,Urine 1.008 (1.001-1.035); Urobilinogen,Urine Negative mg/dL (0.0-1.0); WBC,Urine < 1 /hpf (0-5)
--- NOTE | 2024-07-12 17:41 | ESHP_ITS ---
<Statement entered by Carlos Bear MD - 07/13/24 02:02> I discussed with and supervised the senior internal auditor physician involved in the care of this patient. Patient assessment and plan was discussed with entire medicine team, including my attending. I agree with the assessment and plan as documented by senior internal auditor doctor. Patient care was discussed with my attending physician Dr. Katarzyna Bear, PGY-2 Documentation for date of: 07/12/24 HPI History of Present Illness Chief complaint: Shakiness History of present illness: 89-year-old female with past medical history of type 2 diabetes not on insulin, solitary left kidney, diabetic nephropathy, resistant hypertension on 5 antihypertensives presenting to the ED for shakiness. Per patient's family, sister who lives with her patient started feeling unwell and was shaking. Patient's niece is apparently an RN and asked him to check blood pressure at home, which was low at systolic 80 and diastolic 40. Patient was told to sit with legs up and to drink plenty of water. Per patient's, she remembers the entire event and did not lose consciousness, denies any fever or any sick contacts. Patient recently had new medications added to her regimen for hypertension. Patient follows chief vendor quality Dr. Tracy and was recently started on nifedipine ER 90 mg p.o. daily and hydralazine 50 mg 3 times daily; moreover, she also was seen by bone drier operator Dr. Sultana who started the patient on hydrochlorothiazide 12.5 mg p.o. daily. Patient has been taking all these medications along with clonidine 0.2 mg p.o. 3 times a day and losartan 100 mg p.o. daily for resistant hypertension. Patient denies any other concerning symptoms such as shortness of breath, orthopnea, palpitations, loss of consciousness, melena, hematochezia, nausea, vomiting, diarrhea; however, during examination patient did describe chest discomfort which is worse with movement on the left side and does not radiate anywhere. Medical history: As stated above Surgical history: Right kidney removed for hematuria? Allergies: NKDA Medications: As listed above; patient also takes metformin for diabetes Family history: Noncontributory Social history: Patient lives with her sister and her sisters , denies smoking cigarettes or alcohol ever in life ROS: All 12 systems assessed and the patient denies unless otherwise stated in HPI In the ED, patient presented hypertensive, regular heart rate, regular respiratory rate and afebrile satting 97 on room air. Pertinent lab findings included sodium of 119, potassium 3.9, chloride 87, no anion gap, glucose 150, magnesium 1.4, BNP 188, chest x-ray showed mild vascular congestion and EKG showed left axis deviation but normal sinus rhythm with no concerning ST changes. Patient will be admitted for treatment of hyponatremia along with management of antihypertensive medication and likely workup for resistant pretension. Exam Vital Signs Temp Pulse Resp BP Pulse Ox O2 Del Method 98.2 F 82 19 165/61 H 97 Room Air 07/12/24 15:20 07/12/24 15:20 07/12/24 15:20 07/12/24 15:20 07/12/24 15:20 07/12/24 15:20 Narrative Exam Physical Exam: GENERAL: Awake, appears mildly tremoulessnes, answers questions appropriately, appears younger than stated age HEENT: NC/AT. Moist mucosa. PERRLA/EOMI. CARDIO: Heart RRR, no obvious murmurs, no JVD. PULM: No coughing or visible SOB. Lungs CTA B/L. GI: Abdomen soft, NT/ND, +BS. SKIN/MSK/EXT: No wounds/discoloration/rashes/edema/amputations noted. +Pedal pulses present B/L. NEURO: Oriented x3, no focal neurological deficits, Moves extremities x4. Results: Labs 07/12/24 14:56 07/12/24 14:56 Labs: Short CBC 07/12/24 Range/Units 14:56 WBC 6.5 (3.6-11.0) Thou/mm3 Hgb 12.0 (12.0-16.0) g/dL Hct 34.3 L (36.0-46.0) % Plt Count 278 (140-440) Thou/mm3 BMP 07/12/24 14:56 Sodium 119 L* Potassium 3.9 Chloride 87 L Carbon Dioxide 22.7 BUN 22 Creatinine 0.9 Glucose 150 H Calcium 9.0 Cardiac Enzymes 07/12/24 Range/Units 14:56 Troponin I < 0.020 (0.0-0.045) ng/mL Liver Function 07/12/24 Range/Units 14:56 Total Bilirubin 0.3 (0.3-1.2) mg/dL AST 17 (0-34) U/L ALT 14 (10-49) U/L Alkaline Phosphatase 57 (46-116) U/L Albumin 4.4 (3.4-4.8) gm/dL Quality Measures Quality Measures none Advance care planning discussed with:: patient and sibling (sister) Medications Home Medications and Allergies Home Medications ?Medication ?Instructions ?Recorded ?Confirmed ?Type amlodipine 10 mg tablet 10 mg PO QDAY 03/16/1803/16 History aspirin 325 mg tablet 325 mg PO QDAY 03/16/1803/04 History losartan 100 mg tablet 100 mg PO QDAY 03/16/1803/04 History metformin 500 mg tablet 500 mg PO BID 03/16/1803/16 History Allergies Allergy/AdvReac Type Severity Reaction Status Date / Time No Known Allergies Allergy Verified 07/12/24 14:05 Visit Medications Acetaminophen (Acetaminophen 325 Mg Tablet) 650 mg PO Q6H PRN PRN Reason: Pain 1-3 and/or Fever >100.1 Stop: 08/11/24 17:24 Dextrose (Dextrose 50%-Water Inj 50 Ml Syringe) 25 ml IV Q15MIN PRN PRN Reason: BG 50-70 responsive npo pt Stop: 08/11/24 17:38 Dextrose (Dextrose 50%-Water Inj 50 Ml Syringe) 50 ml IV Q15MIN PRN PRN Reason: BG <50 OR BG <70 & pt unresponsive Stop: 08/11/24 17:38 Glucagon (Glucagon Inj 1 Mg Vial) 1 mg IM Q15MIN PRN PRN Reason: BG <70, and no IV access Heparin Sodium (Porcine) (Heparin Sod Inj 5000 Unit/Ml Vial) 5,000 unit SC Q8HR JOE Stop: 07/26/24 21:59 Sodium Chloride (Ns) 1,000 mls @ 75 mls/hr IV .[id number] ONE Stop: 07/13/24 05:24 Last Admin: 07/12/24 17:36 Dose: 75 mls/hr Magnesium Sulfate (Magnesium Sulfate Ivpb) 4 gm in 50 mls @ 12.5 mls/hr IV X1 ONE Stop: 07/12/24 21:39 Insulin Human Lispro (Insulin Lispro (Admelog) 1 Unit/0.01 Ml Unit) 0 unit SC ACHS [facility]; Protocol Stop: 08/11/24 20:59 Nifedipine (Nifedipine Xl 30 Mg Tabcr) 90 mg PO QDAY JOE Stop: 08/12/24 08:59 Ondansetron HCl (Ondansetron Inj 2 Mg/Ml Inj 2 Ml) 4 mg IV Q6H PRN; Protocol PRN Reason: NAUSEA OR VOMITING Stop: 08/11/24 17:24 Sennosides (Senna Tablet) 1 tab PO QDAY JOE; Protocol Stop: 08/12/24 08:59 Discontinued Medications Sodium Chloride (Ns) 1,000 mls @ 40 mls/hr IV .Q24H ONE Stop: 07/13/24 16:04 Last Infusion: 07/12/24 17:35 Dose: 0 mls/hr Assessment & Plan Plan 89-year-old female with past medical history of type 2 diabetes not on insulin, solitary left kidney, diabetic nephropathy, resistant hypertension on 5 antihypertensives presenting for shakiness will be admitted for treatment of hyponatremia along with management of antihypertensive medication and likely workup for resistant pretension. #Acute hyponatremia Per HPI, patient has been taking 5 different antihypertensive medications Had episode of shakiness and low blood pressure at home per HPI Patient denies having any concerning symptoms such as loss of consciousness, sick contacts, fever/chills, nausea/vomiting/diarrhea Patient follows Dr. Tracy nephrology and Dr. Sultana cardiology and was recently started on 3 new blood pressure medications In the ED, patient was hypertensive and hyponatremic and started on 40 cc/h of normal saline Plan: Increased IV fluid resuscitation to 75 cc/h of normal saline Goal sodium for the next 24 hours is between 122 and 123 If sodium increases too quickly, start desmopressin Dr. Tracy, nephrology has been consulted appreciate recommendations #Resistant hypertension Patient is on 5 different antihypertensive medications as listed above Plan: Restarted nifedipine ER 90 mg, patient's home dose Will hold remaining antihypertensives; consider restarting when more stable #Type 2 diabetes mellitus, non-insulin #Diabetic neuropathy Patient has history of type 2 diabetes with complications, diabetic nephropathy A1c elevated at 6.7 on 06/12/2024 Patient is not taking insulin at home, on metformin Plan: Slight scale insulin #Solitary L Kidney Patient has history of right nephrectomy When asked, patient's family is unsure exactly why it was removed but they state that she had hematuria Plan: Avoid nephrotoxic agents Hospital Management: Lines: PIV Diet: Cardiac Bowel: Senna GI prophylaxis: not needed DVT prophylaxis: Heparin subq Dispo: Sodium q3h; correcting to 122-123/24 hours Code: Full Patient seen and examined with attending Dr. Colón and senior resident Dr. Marianela Gaitan, PGY-1
--- NOTE | 2024-07-12 17:58 | PC.NURSE ---
PHARMACY CALLED AND INFORMED THAT [facility] DOES NOT HAVE MAGNESIUM SULFATE 4G 50ML IVPB LOADED. PER PHARMACY, WILL BRING MEDICATION DOWN TO THE ED SOON.
[2024-07-12] MEDS: Magnesium Sulfate 4 GM Ivpb 4 GM/50 ML BAG IV (18:06)
[2024-07-12 18:40] LABS: Albumin, Serum 4.2 gm/dL (3.4-4.8); Anion Gap 9 (7-16); BUN/Creatinine Ratio 23 Ratio (12-20); Blood Urea Nitrogen 18 mg/dL (9-23); Calcium 8.7 mg/dL (8.3-10.6); Calcium (Corrected) 8.7 mg/dL (8.5-10.1); Carbon Dioxide 23.2 mMol/L (20.0-31.0); Chloride 89 mMol/L (98-107); Creatinine (Component) 0.8 mg/dL (0.6-1.3); Glucose 112 mg/dL (74-106); Osmolality,Calculated 246 (275-295); Phosphorous 3.3 mg/dL (2.4-5.1); Potassium 3.5 mMol/L (3.4-5.1); Sodium 121 mMol/L (136-145); Troponin I 0.021 ng/mL (0.0-0.045); eGFR > 60 See Note
[2024-07-12] MEDS: INSULIN LISPRO (AdmeLOG) 1 UNIT/0.01 ML UNIT SC (20:11)
[2024-07-12 21:18] LABS: Sodium 125 mMol/L (136-145)
[2024-07-12] MEDS: HEPARIN SOD INJ 5000 UNIT/ML VIAL SC (22:15)
[2024-07-12 23:25] LABS: Sodium 125 mMol/L (136-145)
[2024-07-13] VITALS (8 sets, daily range): BP systolic 135–168; BP diastolic 69–90; PULSE 77–99; RESP 14–20; TEMP 36.1–37.3; O2SAT 93–95; BMI 24.7
[2024-07-13 02:50] LABS: Sodium 123 mMol/L (136-145)
[2024-07-13 05:59] LABS: Basophils % (Auto) 0 % (0-2.5); Eosinophils % (Auto) 1 % (0-10); Hematocrit 32.9 % (36.0-46.0); Hemoglobin 11.6 g/dL (12.0-16.0); Immature Granulocytes % (Auto) 0 % (0-0); Immature Granulocytes Auto 0.02 Thou/mm3 (0.00-0.00); Lymphocytes # (Auto) 1.1 Thou/mm3 (1.0-4.8); Lymphocytes % (Auto) 18 % (10-50); Mean Corpuscular HGB Conc 35.3 g/dl (31.0-37.0); Mean Corpuscular Hemoglobin 27.8 pg (25.0-35.0); Mean Corpuscular Volume 79 fL (80-100); Monocytes # (Auto) 0.5 Thou/mm3 (0.0-0.8); Monocytes % (Auto) 9 % (0-12); Neutrophils # (Auto) 4.5 Thou/mm3 (1.8-7.7); Neutrophils % (Auto) 72 % (37-80); Nucleated Red Blood Cell % 0 /100 WBC (0); Platelet Count 231 Thou/mm3 (140-440); RDW Standard Deviation 39.5 fL (36.4-46.3); Red Blood Count 4.17 Miln/mm3 (4.00-5.20); White Blood Count 6.2 Thou/mm3 (3.6-11.0)
[2024-07-13] MEDS: HEPARIN SOD INJ 5000 UNIT/ML VIAL SC ×3 (06:02→21:11)
[2024-07-13 06:23] LABS: Alanine Aminotransferase 16 U/L (10-49); Albumin, Serum 4.1 gm/dL (3.4-4.8); Albumin/Globulin Ratio 1.6 (1.2-2.2); Alkaline Phosphatase 53 U/L (46-116); Anion Gap 7 (7-16); Aspartate Amino Transferase 26 U/L (0-34); BUN/Creatinine Ratio 20 Ratio (12-20); Bilirubin,Total 0.4 mg/dL (0.3-1.2); Blood Urea Nitrogen 12 mg/dL (9-23); Carbon Dioxide 25.8 mMol/L (20.0-31.0); Chloride 90 mMol/L (98-107); Creatinine (Component) 0.6 mg/dL (0.6-1.3); Estimated Creatinine Clearance 50.5 mL/min (>60); Globulin 2.6 gm/dL (2.3-3.5); Glucose 117 mg/dL (74-106); Magnesium 1.7 mg/dL (1.6-2.6); Osmolality,Calculated 248 (275-295); Phosphorous 3.3 mg/dL (2.4-5.1); Potassium 3.5 mMol/L (3.4-5.1); Sodium 123 mMol/L (136-145); Thyroid Stimulating Hormone 1.38 uIU/mL (0.55-4.78); Total Protein 6.7 gm/dL (5.7-8.2); eGFR > 60 See Note
[2024-07-13] MEDS: NIFEdipine XL 30 MG TABCR 90 MG PO (08:51)
[2024-07-13] MEDS: SENNA TABLET 1 TAB PO (08:52)
--- NOTE | 2024-07-13 13:00 | PC.SS ---
Director Food And Beverage met with patient at bedside to complete initial assessment. Patient confirmed her demographic information. [place] [address] [facility], [address] and mailing address [address] [facility], [address]. Patient stated her sibling Ally Perera [phone] is her surrogate medical decision maker. Patient shared she is independent with ADL completion and ambulation as well. Pharmacy: [facility]. PCP: Dr. Tracy. Discharge plan: Home, Sibling Ally Perera to transport. Alt. decision maker: Nelly Perera [phone].
--- NOTE | 2024-07-13 13:23 | PD.NEPHCONS ---
Documented by User: Isak Tracy MD 07/15/24 06:55 History of Present Illness Data of Consult Consult date: 07/13/24 Requesting Physician: Jodi Colón MD Primary Care Provider: Isak Tracy MD Consult Narrative Reason for consult: Hyponatremia cc:: cc: Jodi Colón MD Meds Home Medications and Allergies Home Medications ?Medication ?Instructions ?Recorded ?Confirmed ?Type aspirin 325 mg tablet 325 mg PO QDAY 03/16/18 03/16/18 History losartan 100 mg tablet 100 mg PO QDAY 03/16/18 07/13/24 History metformin 500 mg tablet 500 mg PO BID 03/16/18 07/13/24 History clonidine HCl 0.2 mg tablet 0.2 mg PO TID 07/13/24 07/13/24 History hydralazine 50 mg tablet 50 mg PO TID 07/13/24 07/13/24 History hydrochlorothiazide 12.5 mg tablet 12.5 mg PO DAILY 07/13/24 07/13/24 History nifedipine 90 mg tablet,extended 90 mg PO DAILY 07/13/24 07/13/24 History release Allergies Allergy/AdvReac Type Severity Reaction Status Date / Time No Known Allergies Allergy Verified 07/12/24 14:05 Exam Vital Signs Temp Pulse Resp BP Pulse Ox O2 Del Method 37.2 C 87 20 159/74 H 95 Room Air 07/13/24 20:00 07/13/24 20:00 07/13/24 20:00 07/13/24 20:00 07/13/24 20:00 07/13/24 20:00 Results Labs 07/15/24 04:46 07/15/24 04:46 Labs: Short CBC 07/13/24 Range/Units 05:36 WBC 6.2 (3.6-11.0) Thou/mm3 Hgb 11.6 L (12.0-16.0) g/dL Hct 32.9 L (36.0-46.0) % Plt Count 231 D (140-440) Thou/mm3 BMP 07/12/24 07/13/24 07/13/24 23:04 02:10 05:36 Sodium 125 L 123 L 123 L Potassium 3.5 Chloride 90 L Carbon Dioxide 25.8 BUN 12 Creatinine 0.6 Glucose 117 H Calcium 9.0 07/13/24 07/13/24 07/13/24 14:09 16:58 19:55 Sodium 124 L 125 L 126 L Potassium 3.8 3.7 3.9 Chloride 89 L 91 L 93 L Carbon Dioxide 27.8 27.7 26.4 BUN 10 10 11 Creatinine 0.7 0.7 0.8 Glucose 142 H 124 H 154 H Calcium 8.8 8.9 9.4 Liver Function 07/13/24 07/13/24 07/13/24 Range/Units 05:36 14:09 16:58 Total Bilirubin 0.4 (0.3-1.2) mg/dL AST 26 (0-34) U/L ALT 16 (10-49) U/L Alkaline Phosphatase 53 (46-116) U/L Albumin 4.1 4.1 4.2 (3.4-4.8) gm/dL 07/13/24 Range/Units 19:55 Total Bilirubin (0.3-1.2) mg/dL AST (0-34) U/L ALT (10-49) U/L Alkaline Phosphatase (46-116) U/L Albumin 4.3 (3.4-4.8) gm/dL Assessment & Plan Additional Assessment & Plan Additional Plan: The patient is an 89-year-old female with significant past medical history of type 2 diabetes mellitus not on insulin, resistant hypertension on IV antihypertensive, solitary left kidney, diabetic nephropathy presented to ED with chief complaint of shakiness and generalized weakness was found to have hypotensive at home. Nephrology consultation was done for further management of hyponatremia and adjustment in blood pressure medications. #Acute Severe hypoosmolar euvolemic hyponatremia, improving Likely excessive sodium excretion due to hydrochlorothiazide use Patient presented with sodium level of 119, during our evaluation on 07/13/2024 sodium level was 123 Patient's seemed fairly stable without any neurological abnormalities After 1 L of IV normal saline, sodium level increased to 125 that is the goal range. -Continue to monitor sodium level every 4 hourly -If acute rise in sodium level is seen further, okay to start IV desmopressin 0.1 mcg. 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 The patient's management plan was discussed with my attending physician MD Fredo Mccarthy MD, PGY2 Patient seen and examined with resident physician Dr. Back. Note reviewed, agree with findings and recommendations. Patient with hypovolemic hyponatremia secondary to hydrochlorothiazide and increase p.o. intake. Slowly improving. Blood pressure still remains an issue although much better than on admission. Add beta-blockers. Thank you Dr. Colón for allowing me to participate in the care of Documented by User: Fredo Back MD 07/14/24 10:05 History of Present Illness Consult Narrative History of present illness: The patient is an 89-year-old female with significant past medical history of type 2 diabetes mellitus not on insulin, resistant hypertension on IV antihypertensive, solitary left kidney, diabetic nephropathy presented to ED with chief complaint of shakiness and generalized weakness. Patient was apparently well, but on the evening of 07/12/2024, patient started having shaking generalized body movements, and was feeling weak as per patient niece who is an registered nurse asked her to check her blood pressure which was systolic 80s/diastolic 40s. The patient had mild lightheadedness, but did not lose consciousness. She was recently started on nifedipine 90 Mg extended release p.o. daily hydralazine 50 Mg 3 times daily, and plate developer Dr. Sultana added hydrochlorothiazide 12.5 Mg p.o. daily. She has been already taking her clonidine 0.2 Mg p.o. 3 times daily and losartan 100 Mg p.o. daily for resistant hypertension. She denies any headache, nausea or vomiting, chest pain or SOB, abdominal pain, any changes in bowel or bladder habit or leg swelling. During our evaluation, patient was mildly hypertensive, other vitals stable. CBC was fairly stable with hemoglobin 11.6, and chemistry panel significant for sodium 124, potassium 3.7, creatinine 0.7, blood sugar 146, and phosphorus 3.4. PMH: As mentioned above SHX: Right nephrectomy Medications: As mentioned above and metformin for diabetes mellitus Family history: Noncontributory Social history: Denies smoking, alcohol or any illicit drug use Allergies: No known allergies Nephrology consultation was done for further management of hyponatremia and adjustment in blood pressure medications. Review of Systems Review of Systems Systems Reviewed: All systems reviewed, normal except as documented Meds Home Medications and Allergies Home Medications ?Medication ?Instructions ?Recorded ?Confirmed ?Type aspirin 325 mg tablet 325 mg PO QDAY 03/16/18 03/16/18 History losartan 100 mg tablet 100 mg PO QDAY 03/16/18 07/13/24 History metformin 500 mg tablet 500 mg PO BID 03/16/18 07/13/24 History clonidine HCl 0.2 mg tablet 0.2 mg PO TID 07/13/24 07/13/24 History hydralazine 50 mg tablet 50 mg PO TID 07/13/24 07/13/24 History hydrochlorothiazide 12.5 mg tablet 12.5 mg PO DAILY 07/13/24 07/13/24 History nifedipine 90 mg tablet,extended 90 mg PO DAILY 07/13/24 07/13/24 History release Allergies Allergy/AdvReac Type Severity Reaction Status Date / Time No Known Allergies Allergy Verified 07/12/24 14:05 Exam Narrative Exam General: Elderly, cooperative female, no acute distress, Alert and Oriented x 3 HEENT: Moist mucous membranes, oropharynx clear Neck: Supple, No masses, No JVD CVS: S1S2 Regular rate and rhythm, No murmurs, rubs or gallops Lungs: Clear to auscultation with no accessory use, no wheeze no rhonchi Abd: Soft, NT/ND, +BS, no organomegaly Ext: No edema, warm and well perfused Skin: No rash Psych: Appropriate mood and affect Results Labs 07/15/24 04:46 07/15/24 04:46 Assessment & Plan Additional Assessment & Plan Additional Plan: The patient is an 89-year-old female with significant past medical history of type 2 diabetes mellitus not on insulin, resistant hypertension on IV antihypertensive, solitary left kidney, diabetic nephropathy presented to ED with chief complaint of shakiness and generalized weakness was found to have hypotensive at home. Nephrology consultation was done for further management of hyponatremia and adjustment in blood pressure medications. #Acute Severe hypoosmolar euvolemic hyponatremia, improving Likely excessive sodium excretion due to hydrochlorothiazide use Patient presented with sodium level of 119, during our evaluation on 07/13/2024 sodium level was 123 Patient's seemed fairly stable without any neurological abnormalities After 1 L of IV normal saline, sodium level increased to 125 that is the goal range. -Continue to monitor sodium level every 4 hourly -If acute rise in sodium level is seen further, okay to start IV desmopressin 0.1 mcg. 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 The patient's management plan was discussed with my attending physician MD Fredo Mccarthy MD, PGY2
[2024-07-13] MEDS: LOSARTAN POTASSIUM 25 MG TABLET 100 MG PO (13:38)
[2024-07-13 14:40] LABS: Albumin, Serum 4.1 gm/dL (3.4-4.8); Anion Gap 7 (7-16); BUN/Creatinine Ratio 14 Ratio (12-20); Blood Urea Nitrogen 10 mg/dL (9-23); Calcium 8.8 mg/dL (8.3-10.6); Calcium (Corrected) 8.8 mg/dL (8.5-10.1); Carbon Dioxide 27.8 mMol/L (20.0-31.0); Chloride 89 mMol/L (98-107); Creatinine (Component) 0.7 mg/dL (0.6-1.3); Estimated Creatinine Clearance 43.3 mL/min (>60); Glucose 142 mg/dL (74-106); Osmolality,Calculated 250 (275-295); Potassium 3.8 mMol/L (3.4-5.1); Sodium 124 mMol/L (136-145); eGFR > 60 See Note
[2024-07-13 17:25] LABS: Albumin, Serum 4.2 gm/dL (3.4-4.8); Anion Gap 6 (7-16); BUN/Creatinine Ratio 14 Ratio (12-20); Blood Urea Nitrogen 10 mg/dL (9-23); Calcium 8.9 mg/dL (8.3-10.6); Calcium (Corrected) 8.9 mg/dL (8.5-10.1); Carbon Dioxide 27.7 mMol/L (20.0-31.0); Chloride 91 mMol/L (98-107); Creatinine (Component) 0.7 mg/dL (0.6-1.3); Estimated Creatinine Clearance 43.3 mL/min (>60); Glucose 124 mg/dL (74-106); Osmolality,Calculated 251 (275-295); Potassium 3.7 mMol/L (3.4-5.1); Sodium 125 mMol/L (136-145); eGFR > 60 See Note
--- NOTE | 2024-07-13 18:45 | PD.RESPRO ---
Documentation for date of: 07/13/24 Subjective Subjective Interval history: Sodium levels 123 this morning, repeat in afternoon levels of 125, slowly increasing no need for IV NS at this time. We restarted patient's losartan home medication as she was hypertensive, currently on nifedipine and losartan. Will continue to make further BP medications adjustment. Exam Vital Signs Temp Pulse Resp BP Pulse Ox O2 Del Method 98.7 F 92 19 135/72 H 93 L Room Air 07/13/24 16:00 07/13/24 16:00 07/13/24 16:00 07/13/24 16:00 07/13/24 16:00 07/13/24 16:00 Narrative Exam Constitutional: well-developed, well-nourished, in no acute distress, lying in bed HEENT: NCAT, EOMI, reactive round pupils b/l, patent nares b/l, moist mucous membranes Lung: CTAB, no wheezing, no rhonchi Heart: Regular S1S2, no murmurs, gallops, or rubs Abdomen: Soft, non-distended, non-tender, bowel sounds present throughout Extremities: No cyanosis, clubbing, or edema, LE pulses present b/l Neurologic: No focal sensory or motor deficits noted, AOx3, appropriate affect Skin: Warm, dry, no lesions or rashes noted Objective Labs 07/13/24 05:36 07/13/24 22:40 Labs: Laboratory Results - last 24 hr 07/12/24 07/12/24 07/13/24 20:52 23:04 02:10 WBC RBC Hgb Hct MCV MCH MCHC RDW Std Deviation Plt Count Neut % (Auto) Lymph % (Auto) [place] % (Auto) Eos % (Auto) Baso % (Auto) Neut # (Auto) Lymph # (Auto) [place] # (Auto) Eos # (Auto) Baso # (Auto) Immature Gran # (Auto) Absolute Nucleated RBC Immature Gran % Nucleated RBC % Sodium 125 L 125 L 123 L Potassium Chloride Carbon Dioxide Anion Gap BUN Creatinine Estim Creat Clear Calc eGFR BUN/Creatinine Ratio Glucose Calculated Osmolality Calcium Corrected Calcium Phosphorus Magnesium Total Bilirubin AST ALT Alkaline Phosphatase Total Protein Albumin Globulin Albumin/Globulin Ratio TSH 07/13/24 07/13/24 07/13/24 05:36 14:09 16:58 WBC 6.2 RBC 4.17 Hgb 11.6 L Hct 32.9 L MCV 79 L MCH 27.8 MCHC 35.3 RDW Std Deviation 39.5 Plt Count 231 D Neut % (Auto) 72 Lymph % (Auto) 18 [place] % (Auto) 9 Eos % (Auto) 1 Baso % (Auto) 0 Neut # (Auto) 4.5 Lymph # (Auto) 1.1 [place] # (Auto) 0.5 Eos # (Auto) 0.0 Baso # (Auto) 0.0 Immature Gran # (Auto) 0.02 H Absolute Nucleated RBC 0.00 Immature Gran % 0 Nucleated RBC % 0 Sodium 123 L 124 L 125 L Potassium 3.5 3.8 3.7 Chloride 90 L 89 L 91 L Carbon Dioxide 25.8 27.8 27.7 Anion Gap 7 7 6 L BUN 12 10 10 Creatinine 0.6 0.7 0.7 Estim Creat Clear Calc 50.5 L 43.3 L 43.3 L eGFR > 60 > 60 > 60 BUN/Creatinine Ratio 20 14 14 Glucose 117 H 142 H 124 H Calculated Osmolality 248 L 250 L 251 L Calcium 9.0 8.8 8.9 Corrected Calcium 9.0 8.8 8.9 Phosphorus 3.3 3.0 3.0 Magnesium 1.7 Total Bilirubin 0.4 AST 26 ALT 16 Alkaline Phosphatase 53 Total Protein 6.7 Albumin 4.1 4.1 4.2 Globulin 2.6 Albumin/Globulin Ratio 1.6 TSH 1.38 Quality Measures Quality Measures none Advance care planning discussed with:: patient Assessment & Plan Assessment Current Active Medications: Generic Name Dose Route Start Last Admin Trade Name Freq PRN Reason Stop Dose Admin Acetaminophen 650 mg 07/12/24 17:25 Acetaminophen 325 Mg Tablet PO 08/11/24 17:24 Q6H PRN Pain 1-3 and/or Fever >100.1 Dextrose 25 ml 07/12/24 17:39 Dextrose 50%-Water Inj 50 Ml Syringe IV 08/11/24 17:38 Q15MIN PRN BG 50-70 responsive npo pt Dextrose 50 ml 07/12/24 17:39 Dextrose 50%-Water Inj 50 Ml Syringe IV 08/11/24 17:38 Q15MIN PRN BG <50 OR BG <70 & pt unresponsive Glucagon 1 mg 07/12/24 17:39 Glucagon Inj 1 Mg Vial IM Q15MIN PRN BG <70, and no IV access Heparin Sodium (Porcine) 5,000 unit 07/12/24 22:00 07/13/24 13:38 Heparin Sod Inj 5000 Unit/Ml Vial SC 07/26/24 21:59 5,000 unit Q8HR JOE Administration Insulin Human Lispro 0 unit 07/12/24 23:18 07/13/24 17:00 Insulin Lispro (Admelog) 1 Unit/0.01 Ml Unit SC 08/11/24 20:59 Not Given ACHS JOE Protocol Losartan Potassium 100 mg 07/13/24 13:30 07/13/24 13:38 Losartan Potassium 25 Mg Tablet PO 08/12/24 13:29 100 mg QDAY JOE Administration Nifedipine 90 mg 07/13/24 09:00 07/13/24 08:51 Nifedipine Xl 30 Mg Tabcr PO 08/12/24 08:59 90 mg QDAY JOE Administration Ondansetron HCl 4 mg 07/12/24 17:25 Ondansetron Inj 2 Mg/Ml Inj 2 Ml IV 08/11/24 17:24 Q6H PRN NAUSEA OR VOMITING Protocol Sennosides 1 tab 07/13/24 09:00 07/13/24 08:52 Senna Tablet PO 08/12/24 08:59 1 tab QDAY JOE Administration Protocol Plan 89-year-old female with past medical history of type 2 diabetes not on insulin, solitary left kidney, diabetic nephropathy, resistant hypertension on 5 antihypertensives presenting for shakiness will be admitted for treatment of hyponatremia along with management of antihypertensive medication and likely workup for resistant pretension. #Acute hyponatremia Per HPI, patient has been taking 5 different antihypertensive medications Had episode of shakiness and low blood pressure at home per HPI Patient denies having any concerning symptoms such as loss of consciousness, sick contacts, fever/chills, nausea/vomiting/diarrhea Patient follows Dr. Tracy nephrology and Dr. Sultana cardiology and was recently started on 3 new blood pressure medications In the ED, patient was hypertensive and hyponatremic and started on 40 cc/h of normal saline Completed 1L NS IVF on 07/12/24, current Na at 125 Plan: Continue sodium checks If sodium increases too quickly, start desmopressin Dr. Tracy, nephrology has been consulted appreciate recommendations #Resistant hypertension Patient is on 5 different antihypertensive medications as listed above Plan: Restarted nifedipine ER 90 mg, patient's home dose Restarted Losartan 100 mg home med Will hold remaining antihypertensives; consider restarting when more stable #Type 2 diabetes mellitus, non-insulin #Diabetic neuropathy Patient has history of type 2 diabetes with complications, diabetic nephropathy A1c elevated at 6.7 on 06/12/2024 Patient is not taking insulin at home, on metformin Plan: Slight scale insulin #Solitary L Kidney Patient has history of right nephrectomy When asked, patient's family is unsure exactly why it was removed but they state that she had hematuria Plan: Avoid nephrotoxic agents Hospital Management: Lines: PIV Diet: Cardiac Bowel: Senna GI prophylaxis: not needed DVT prophylaxis: Heparin subq Dispo: Sodium q3h; correcting to 122-123/24 hours Code: Full This patient care was discussed with my attending Dr. Katarzyna Bear MD PGY-2 Disclaimer: Minor errors in restaurant host/hostess may be present since this note was dictated by speech recognition software.
[2024-07-13 20:24] LABS: Albumin, Serum 4.3 gm/dL (3.4-4.8); Anion Gap 7 (7-16); BUN/Creatinine Ratio 14 Ratio (12-20); Blood Urea Nitrogen 11 mg/dL (9-23); Calcium 9.4 mg/dL (8.3-10.6); Calcium (Corrected) 9.4 mg/dL (8.5-10.1); Carbon Dioxide 26.4 mMol/L (20.0-31.0); Chloride 93 mMol/L (98-107); Creatinine (Component) 0.8 mg/dL (0.6-1.3); Estimated Creatinine Clearance 37.9 mL/min (>60); Glucose 154 mg/dL (74-106); Osmolality,Calculated 255 (275-295); Phosphorous 2.8 mg/dL (2.4-5.1); Potassium 3.9 mMol/L (3.4-5.1); Sodium 126 mMol/L (136-145); eGFR > 60 See Note
[2024-07-13 23:11] LABS: Albumin, Serum 4.3 gm/dL (3.4-4.8); Anion Gap 6 (7-16); BUN/Creatinine Ratio 17 Ratio (12-20); Blood Urea Nitrogen 12 mg/dL (9-23); Calcium 8.9 mg/dL (8.3-10.6); Calcium (Corrected) 8.9 mg/dL (8.5-10.1); Carbon Dioxide 27.3 mMol/L (20.0-31.0); Chloride 91 mMol/L (98-107); Creatinine (Component) 0.7 mg/dL (0.6-1.3); Estimated Creatinine Clearance 43.3 mL/min (>60); Glucose 146 mg/dL (74-106); Osmolality,Calculated 252 (275-295); Phosphorous 3.4 mg/dL (2.4-5.1); Potassium 3.7 mMol/L (3.4-5.1); Sodium 124 mMol/L (136-145); eGFR > 60 See Note
[2024-07-14] VITALS (11 sets, daily range): BP systolic 140–187; BP diastolic 70–89; PULSE 68–125; RESP 16–22; TEMP 36.8–37.6; O2SAT 95–96; BMI 24.7
--- NOTE | 2024-07-14 03:37 | EKG_ITS ---
[facility] Test Date: 2024-07-14 Pat Name: ELIOT HAJI [facility] [employer] Designer: CARL : 1935 Requested By: Baldo Schofield Order Number: [id number] Reading MD: Baldo Schofield Measurements Intervals [place] Rate: 98 P: 58 [place]: 131 QRS: -37 QRSD: 82 T: 87 QT: 279 QTc: 358 Interpretive Statements SINUS RHYTHM WITH FREQUENT SUPRAVENTRICULAR PREMATURE COMPLEXES MARKED LEFT AXIS DEVIATION NONSPECIFIC ST & T-WAVE ABNORMALITY Compared to ECG 07/12/2024 14:42:16 No significant changes /store/S0/[id number].pdf
[2024-07-14] MEDS: METOPROLOL TARTRATE INJ 1 MG/ML AMP 5 ML 5 MG IVP (04:05)
[2024-07-14] MEDS: HEPARIN SOD INJ 5000 UNIT/ML VIAL SC ×3 (05:33→21:02)
[2024-07-14 06:07] LABS: Basophils % (Auto) 1 % (0-2.5); Eosinophils # (Auto) 0.1 Thou/mm3 (0.0-0.5); Eosinophils % (Auto) 1 % (0-10); Hematocrit 36.7 % (36.0-46.0); Hemoglobin 12.7 g/dL (12.0-16.0); Immature Granulocytes % (Auto) 0 % (0-0); Immature Granulocytes Auto 0.02 Thou/mm3 (0.00-0.00); Lymphocytes # (Auto) 1.4 Thou/mm3 (1.0-4.8); Lymphocytes % (Auto) 28 % (10-50); Mean Corpuscular HGB Conc 34.6 g/dl (31.0-37.0); Mean Corpuscular Hemoglobin 27.9 pg (25.0-35.0); Mean Corpuscular Volume 81 fL (80-100); Monocytes # (Auto) 0.7 Thou/mm3 (0.0-0.8); Monocytes % (Auto) 14 % (0-12); Neutrophils # (Auto) 2.7 Thou/mm3 (1.8-7.7); Neutrophils % (Auto) 56 % (37-80); Nucleated Red Blood Cell % 0 /100 WBC (0); Platelet Count 256 Thou/mm3 (140-440); RDW Standard Deviation 40.4 fL (36.4-46.3); Red Blood Count 4.55 Miln/mm3 (4.00-5.20); White Blood Count 4.8 Thou/mm3 (3.6-11.0)
[2024-07-14] MEDS: INSULIN LISPRO (AdmeLOG) 1 UNIT/0.01 ML UNIT SC ×3 (07:41→21:01)
[2024-07-14 07:43] LABS: Alanine Aminotransferase 22 U/L (10-49); Albumin, Serum 4.3 gm/dL (3.4-4.8); Albumin/Globulin Ratio 1.6 (1.2-2.2); Alkaline Phosphatase 54 U/L (46-116); Anion Gap 8 (7-16); Aspartate Amino Transferase 30 U/L (0-34); BUN/Creatinine Ratio 17 Ratio (12-20); Bilirubin,Total 0.4 mg/dL (0.3-1.2); Blood Urea Nitrogen 10 mg/dL (9-23); Carbon Dioxide 25.6 mMol/L (20.0-31.0); Chloride 92 mMol/L (98-107); Creatinine (Component) 0.6 mg/dL (0.6-1.3); Estimated Creatinine Clearance 50.5 mL/min (>60); Globulin 2.7 gm/dL (2.3-3.5); Glucose 140 mg/dL (74-106); Osmolality,Calculated 254 (275-295); Potassium 3.7 mMol/L (3.4-5.1); Sodium 126 mMol/L (136-145); eGFR > 60 See Note
--- NOTE | 2024-07-14 09:11 | PC.SS ---
Follow up note: Correct sodium. Possible d/c home tomorrow.
--- NOTE | 2024-07-14 09:37 | XR_ITS ---
Examination: Renal arterial Doppler sonographic evaluation Renal sonography INDICATIONS: Persistent hypertension Exam date and time: July 14, 2024 1722 hours TECHNIQUE AND FINDINGS: Right nephrectomy Left kidney 11.7 x 6.6 x 5.5 cm cortex 1.8 cm 17 mm left renal cyst Moderate left renal parenchymal scar formation No elevation left renal artery peak systolic velocities Minimal elevation left resistive indices Normal renal aortic ratio IMPRESSION: No Doppler sonographic findings of left renal artery stenosis
--- NOTE | 2024-07-14 09:52 | ESPR_ITS ---
Documentation for date of: 07/14/24 Subjective Subjective Interval history: The patient is an 89-year-old female with significant past medical history of type 2 diabetes mellitus not on insulin, resistant hypertension on IV antihypertensive, solitary left kidney, diabetic nephropathy presented to ED with chief complaint of shakiness and generalized weakness. Patient was apparently well, but on the evening of 07/12/2024, patient started having shaking generalized body movements, and was feeling weak as per patient niece who is an registered nurse asked her to check her blood pressure which was systolic 80s/diastolic 40s. The patient had mild lightheadedness, but did not lose consciousness. She was recently started on nifedipine 90 Mg extended release p.o. daily hydralazine 50 Mg 3 times daily, and bi technical lead Dr. Sultana added hydrochlorothiazide 12.5 Mg p.o. daily. She has been already taking her clonidine 0.2 Mg p.o. 3 times daily and losartan 100 Mg p.o. daily for resistant hypertension. She denies any headache, nausea or vomiting, chest pain or SOB, abdominal pain, any changes in bowel or bladder habit or leg swelling. During our evaluation, patient was mildly hypertensive, other vitals stable. CBC was fairly stable with hemoglobin 11.6, and chemistry panel significant for sodium 124, potassium 3.7, creatinine 0.7, blood sugar 146, and phosphorus 3.4. PMH: As mentioned above SHX: Right nephrectomy Medications: As mentioned above and metformin for diabetes mellitus Family history: Noncontributory Social history: Denies smoking, alcohol or any illicit drug use Allergies: No known allergies Nephrology consultation was done for further management of hyponatremia and adjustment in blood pressure medications. 07/14/2024: Was interviewed and examined at the bedside this morning. She reported doing well. Her vitals were fairly stable with blood pressure 176/74 and pulse rate 108. Physical examination was unremarkable. She denied any lightheadedness, headache, chest pain or SOB, any abdominal pain, nausea or vomiting, any changes in bowel or bladder habit, or any leg swelling. CBC WNL, sodium 126, chloride 92, potassium 3.7, blood sugar 140, and calculated osmolality 254. Workup for resistant hypertension was done starting with ultrasound of renal arteries. Patient does not seem to have hyponatremia ever in the past, and hyperaldosteronism is less likely. Exam Vital Signs Temp Pulse Resp BP Pulse Ox O2 Del Method 99.3 F 85 16 153/79 H 95 Room Air 07/14/24 08:00 07/14/24 08:00 07/14/24 08:00 07/14/24 08:00 07/14/24 08:00 07/14/24 08:00 Narrative Exam General: Elderly, cooperative female, no acute distress, Alert and Oriented x 3 HEENT: Moist mucous membranes, oropharynx clear Neck: Supple, No masses, No JVD CVS: S1S2 Regular rate and rhythm, No murmurs, rubs or gallops Lungs: Clear to auscultation with no accessory use, no wheeze no rhonchi Abd: Soft, NT/ND, +BS, no organomegaly Ext: No edema, warm and well perfused Skin: No rash Psych: Appropriate mood and affect Objective Labs 07/15/24 04:46 07/15/24 04:46 Labs: Laboratory Results - last 24 hr 07/13/24 07/13/24 07/13/24 14:09 16:58 19:55 WBC RBC Hgb Hct MCV MCH MCHC RDW Std Deviation Plt Count Neut % (Auto) Lymph % (Auto) [place] % (Auto) Eos % (Auto) Baso % (Auto) Neut # (Auto) Lymph # (Auto) [place] # (Auto) Eos # (Auto) Baso # (Auto) Immature Gran # (Auto) Absolute Nucleated RBC Immature Gran % Nucleated RBC % Sodium 124 L 125 L 126 L Potassium 3.8 3.7 3.9 Chloride 89 L 91 L 93 L Carbon Dioxide 27.8 27.7 26.4 Anion Gap 7 6 L 7 BUN 10 10 11 Creatinine 0.7 0.7 0.8 Estim Creat Clear Calc 43.3 L 43.3 L 37.9 L eGFR > 60 > 60 > 60 BUN/Creatinine Ratio 14 14 14 Glucose 142 H 124 H 154 H Calculated Osmolality 250 L 251 L 255 L Calcium 8.8 8.9 9.4 Corrected Calcium 8.8 8.9 9.4 Phosphorus 3.0 3.0 2.8 Total Bilirubin AST ALT Alkaline Phosphatase Total Protein Albumin 4.1 4.2 4.3 Globulin Albumin/Globulin Ratio 07/13/24 07/14/24 22:40 05:25 WBC 4.8 RBC 4.55 Hgb 12.7 Hct 36.7 MCV 81 MCH 27.9 MCHC 34.6 RDW Std Deviation 40.4 Plt Count 256 Neut % (Auto) 56 Lymph % (Auto) 28 [place] % (Auto) 14 H Eos % (Auto) 1 Baso % (Auto) 1 Neut # (Auto) 2.7 Lymph # (Auto) 1.4 [place] # (Auto) 0.7 Eos # (Auto) 0.1 Baso # (Auto) 0.0 Immature Gran # (Auto) 0.02 H Absolute Nucleated RBC 0.00 Immature Gran % 0 Nucleated RBC % 0 Sodium 124 L 126 L Potassium 3.7 3.7 Chloride 91 L 92 L Carbon Dioxide 27.3 25.6 Anion Gap 6 L 8 BUN 12 10 Creatinine 0.7 0.6 Estim Creat Clear Calc 43.3 L 50.5 L eGFR > 60 > 60 BUN/Creatinine Ratio 17 17 Glucose 146 H 140 H Calculated Osmolality 252 L 254 L Calcium 8.9 9.0 Corrected Calcium 8.9 9.0 Phosphorus 3.4 Total Bilirubin 0.4 AST 30 ALT 22 Alkaline Phosphatase 54 Total Protein 7.0 Albumin 4.3 4.3 Globulin 2.7 Albumin/Globulin Ratio 1.6 Quality Measures Quality Measures none Advance care planning discussed with:: patient Assessment & Plan Assessment Current Active Medications: Generic Name Dose Route Start Last Admin Trade Name Freq PRN Reason Stop Dose Admin Acetaminophen 650 mg 07/12/24 17:25 Acetaminophen 325 Mg Tablet PO 08/11/24 17:24 Q6H PRN Pain 1-3 and/or Fever >100.1 Carvedilol 12.5 mg 07/14/24 08:00 Carvedilol 12.5 Mg Tablet PO 08/13/24 07:59 BIDWM JOE Dextrose 25 ml 07/12/24 17:39 Dextrose 50%-Water Inj 50 Ml Syringe IV 08/11/24 17:38 Q15MIN PRN BG 50-70 responsive npo pt Dextrose 50 ml 07/12/24 17:39 Dextrose 50%-Water Inj 50 Ml Syringe IV 08/11/24 17:38 Q15MIN PRN BG <50 OR BG <70 & pt unresponsive Glucagon 1 mg 07/12/24 17:39 Glucagon Inj 1 Mg Vial IM Q15MIN PRN BG <70, and no IV access Heparin Sodium (Porcine) 5,000 unit 07/12/24 22:00 07/14/24 05:33 Heparin Sod Inj 5000 Unit/Ml Vial SC 07/26/24 21:59 5,000 unit Q8HR JOE Administration Insulin Human Lispro 0 unit 07/12/24 23:18 07/14/24 07:41 Insulin Lispro (Admelog) 1 Unit/0.01 Ml Unit SC 08/11/24 20:59 1 unit ACHS JOE Administration Protocol Losartan Potassium 100 mg 07/13/24 13:30 07/13/24 13:38 Losartan Potassium 25 Mg Tablet PO 08/12/24 13:29 100 mg QDAY JOE Administration Nifedipine 90 mg 07/13/24 09:00 07/13/24 08:51 Nifedipine Xl 30 Mg Tabcr PO 08/12/24 08:59 90 mg QDAY JOE Administration Ondansetron HCl 4 mg 07/12/24 17:25 Ondansetron Inj 2 Mg/Ml Inj 2 Ml IV 08/11/24 17:24 Q6H PRN NAUSEA OR VOMITING Protocol Sennosides 1 tab 07/13/24 09:00 07/13/24 08:52 Senna Tablet PO 08/12/24 08:59 1 tab QDAY JOE Administration Protocol Plan The patient is an 89-year-old female with significant past medical history of type 2 diabetes mellitus not on insulin, resistant hypertension on IV antihypertensive, solitary left kidney, diabetic nephropathy presented to ED with chief complaint of shakiness and generalized weakness was found to have hypotensive at home. Nephrology consultation was done for further management of hyponatremia and adjustment in blood pressure medications. #Acute Severe hypoosmolar euvolemic hyponatremia, improving Likely excessive sodium excretion due to hydrochlorothiazide use Patient presented with sodium level of 119, on 07/14/2024 sodium level was 126 Patient's seemed fairly stable without any neurological abnormalities, alert and oriented x 3 -Continue to monitor sodium level every 4 hourly -As the patient is currently stable, and she is mildly hypertensive, we expect to AutoCorrect her sodium level after discontinuing hydrochlorothiazide with appropriate diet. -Avoid using hydrochlorothiazide any further -Continue to monitor sodium daily #Resistant hypertension Currently blood pressure is mildly hypertensive -Continue with nifedipine extended release 90 Mg daily -Continue with losartan 100 Mg daily -Started on Coreg 12.5 Mg twice daily -Recommended to slowly add all other home medications except hydrochlorothiazide to stabilize the blood pressure -US renal artery ordered to any renal artery stenosis, and hyperadrenalism is less likely as her sodium level was never high. -To monitor blood pressure #Solitary L Kidney Right nephrectomy in the past, patient stated that seems to have hematuria and once recommended to remove right kidney -Avoid nephrotoxic drugs -Proper diabetes and blood pressure management #Type 2 diabetes mellitus, non-insulin #Diabetic neuropathy -Management deferred to primary hospitalist team Thank you for your opportunity to participate nephrology team in this patient care. The patient's management plan was discussed with my attending physician MD Fredo Mccarthy MD, PGY2 Attending Provider Attestation/Addendum Patient seen and examined with resident physician Dr. Back. Note reviewed, agree with findings and recommendations. Patient with hypovolemic hyponatremia. Slowly improving. Held hydrochlorothiazide. On fluid restriction. Blood pressure on the higher side-spoke to primary team to add beta-blockers.
[2024-07-14] MEDS: LOSARTAN POTASSIUM 25 MG TABLET 100 MG PO (09:55)
[2024-07-14] MEDS: NIFEdipine XL 30 MG TABCR 90 MG PO (09:55)
[2024-07-14] MEDS: carVEDILOL 12.5 MG TABLET PO ×2 (09:56→17:47)
[2024-07-14] MEDS: SENNA TABLET 1 TAB PO (09:56)
[2024-07-14] MEDS: hydrALAZINE INJ 20 MG/ML VIAL 10 MG IV (15:17)
--- NOTE | 2024-07-14 15:30 | PD.RESPRO ---
Documentation for date of: 07/14/24 Subjective Subjective Interval history: 07/14/2024: Overnight patient had heart rate in the 140s, EKG was ordered by night team which showed sinus tachycardia has resolved x 1 dose of Toprol tartrate 5 mg was given. This morning patient seen and examined, she is ambulating around the hospital bed and states that she feels much better. On exam no pertinent findings and the patient is improving in regards to her sodium. Patient scheduled for ultrasound left kidney for renal artery stenosis; was placed n.p.o. Later on in the day, patient became symptomatic again with shakiness and hypertensive. Added as needed antihypertensive, but will increase dosage of Coreg if blood pressure remains elevated. Exam Vital Signs Temp Pulse Resp BP Pulse Ox O2 Del Method 98.2 F 77 18 187/89 H 96 Room Air 07/14/24 12:00 07/14/24 15:17 07/14/24 12:00 07/14/24 15:17 07/14/24 12:00 07/14/24 12:00 Narrative Exam General: Elderly, cooperative female, no acute distress, Alert and Oriented x 3 HEENT: Moist mucous membranes, oropharynx clear Neck: Supple, No masses, No JVD CVS: S1S2 Regular rate and rhythm, No murmurs, rubs or gallops Lungs: Clear to auscultation with no accessory use, no wheeze no rhonchi Abd: Soft, NT/ND, +BS, no organomegaly Ext: No edema, warm and well perfused Skin: No rash Psych: Appropriate mood and affect Objective Labs 07/14/24 05:25 07/14/24 05:25 Labs: Laboratory Results - last 24 hr 07/13/24 07/13/24 07/13/24 16:58 19:55 22:40 WBC RBC Hgb Hct MCV MCH MCHC RDW Std Deviation Plt Count Neut % (Auto) Lymph % (Auto) [place] % (Auto) Eos % (Auto) Baso % (Auto) Neut # (Auto) Lymph # (Auto) [place] # (Auto) Eos # (Auto) Baso # (Auto) Immature Gran # (Auto) Absolute Nucleated RBC Immature Gran % Nucleated RBC % Sodium 125 L 126 L 124 L Potassium 3.7 3.9 3.7 Chloride 91 L 93 L 91 L Carbon Dioxide 27.7 26.4 27.3 Anion Gap 6 L 7 6 L BUN 10 11 12 Creatinine 0.7 0.8 0.7 Estim Creat Clear Calc 43.3 L 37.9 L 43.3 L eGFR > 60 > 60 > 60 BUN/Creatinine Ratio 14 14 17 Glucose 124 H 154 H 146 H Calculated Osmolality 251 L 255 L 252 L Calcium 8.9 9.4 8.9 Corrected Calcium 8.9 9.4 8.9 Phosphorus 3.0 2.8 3.4 Total Bilirubin AST ALT Alkaline Phosphatase Total Protein Albumin 4.2 4.3 4.3 Globulin Albumin/Globulin Ratio 07/14/24 05:25 WBC 4.8 RBC 4.55 Hgb 12.7 Hct 36.7 MCV 81 MCH 27.9 MCHC 34.6 RDW Std Deviation 40.4 Plt Count 256 Neut % (Auto) 56 Lymph % (Auto) 28 [place] % (Auto) 14 H Eos % (Auto) 1 Baso % (Auto) 1 Neut # (Auto) 2.7 Lymph # (Auto) 1.4 [place] # (Auto) 0.7 Eos # (Auto) 0.1 Baso # (Auto) 0.0 Immature Gran # (Auto) 0.02 H Absolute Nucleated RBC 0.00 Immature Gran % 0 Nucleated RBC % 0 Sodium 126 L Potassium 3.7 Chloride 92 L Carbon Dioxide 25.6 Anion Gap 8 BUN 10 Creatinine 0.6 Estim Creat Clear Calc 50.5 L eGFR > 60 BUN/Creatinine Ratio 17 Glucose 140 H Calculated Osmolality 254 L Calcium 9.0 Corrected Calcium 9.0 Phosphorus Total Bilirubin 0.4 AST 30 ALT 22 Alkaline Phosphatase 54 Total Protein 7.0 Albumin 4.3 Globulin 2.7 Albumin/Globulin Ratio 1.6 Quality Measures Quality Measures none Advance care planning discussed with:: patient and sibling Assessment & Plan Assessment Current Active Medications: Generic Name Dose Route Start Last Admin Trade Name Freq PRN Reason Stop Dose Admin Acetaminophen 650 mg 07/12/24 17:25 Acetaminophen 325 Mg Tablet PO 08/11/24 17:24 Q6H PRN Pain 1-3 and/or Fever >100.1 Carvedilol 12.5 mg 07/14/24 08:00 07/14/24 09:56 Carvedilol 12.5 Mg Tablet PO 08/13/24 07:59 12.5 mg BIDWM JOE Administration Dextrose 25 ml 07/12/24 17:39 Dextrose 50%-Water Inj 50 Ml Syringe IV 08/11/24 17:38 Q15MIN PRN BG 50-70 responsive npo pt Dextrose 50 ml 07/12/24 17:39 Dextrose 50%-Water Inj 50 Ml Syringe IV 08/11/24 17:38 Q15MIN PRN BG <50 OR BG <70 & pt unresponsive Glucagon 1 mg 07/12/24 17:39 Glucagon Inj 1 Mg Vial IM Q15MIN PRN BG <70, and no IV access Heparin Sodium (Porcine) 5,000 unit 07/12/24 22:00 07/14/24 14:00 Heparin Sod Inj 5000 Unit/Ml Vial SC 07/26/24 21:59 5,000 unit Q8HR JOE Administration Insulin Human Lispro 0 unit 07/12/24 23:18 07/14/24 12:16 Insulin Lispro (Admelog) 1 Unit/0.01 Ml Unit SC 08/11/24 20:59 Not Given ACHS JOE Protocol Losartan Potassium 100 mg 07/13/24 13:30 07/14/24 09:55 Losartan Potassium 25 Mg Tablet PO 08/12/24 13:29 100 mg QDAY JOE Administration Nifedipine 90 mg 07/13/24 09:00 07/14/24 09:55 Nifedipine Xl 30 Mg Tabcr PO 08/12/24 08:59 90 mg QDAY JOE Administration Ondansetron HCl 4 mg 07/12/24 17:25 Ondansetron Inj 2 Mg/Ml Inj 2 Ml IV 08/11/24 17:24 Q6H PRN NAUSEA OR VOMITING Protocol Sennosides 1 tab 07/13/24 09:00 07/14/24 09:56 Senna Tablet PO 08/12/24 08:59 1 tab QDAY JOE Administration Protocol Plan 89-year-old female with past medical history of type 2 diabetes not on insulin, solitary left kidney, diabetic nephropathy, resistant hypertension on 5 antihypertensives presenting for shakiness will be admitted for treatment of hyponatremia along with management of antihypertensive medication and likely workup for resistant pretension. #Acute hyponatremia, improving Per HPI, patient has been taking 5 different antihypertensive medications Had episode of shakiness and low blood pressure at home per HPI Patient denies having any concerning symptoms such as loss of consciousness, sick contacts, fever/chills, nausea/vomiting/diarrhea Patient follows Dr. Tracy nephrology and Dr. Sultana cardiology and was recently started on 3 new blood pressure medications In the ED, patient was hypertensive and hyponatremic and started on 40 cc/h of normal saline Completed 1L NS IVF on 07/12/24, current Na at 125 Patient sodium stable at 126 Plan: Monitor with morning labs Dr. Tracy, nephrology has been consulted appreciate recommendations #Resistant hypertension Patient is on 5 different antihypertensive medications as listed above Plan: U/S Renal to r/o renal artery stenosis Started Coreg 12.5 mg po bid - will increase Restarted nifedipine ER 90 mg, patient's home dose Restarted Losartan 100 mg home med Will hold remaining antihypertensives; consider restarting when more stable #Type 2 diabetes mellitus, non-insulin #Diabetic neuropathy Patient has history of type 2 diabetes with complications, diabetic nephropathy A1c elevated at 6.7 on 06/12/2024 Patient is not taking insulin at home, on metformin Plan: Slight scale insulin #Solitary L Kidney Patient has history of right nephrectomy When asked, patient's family is unsure exactly why it was removed but they state that she had hematuria Plan: Avoid nephrotoxic agents Hospital Management: Lines: PIV Diet: Cardiac Bowel: Senna GI prophylaxis: not needed DVT prophylaxis: Heparin subq Dispo: Antihypertensive management; U/S Renal to r/o renal artery stenosis Code: Full Patient seen and examined with attending Dr. Katarzyna Gaitan, PGY-1
[2024-07-15] VITALS (12 sets, daily range): BP systolic 123–161; BP diastolic 54–85; PULSE 67–80; RESP 13–19; TEMP 36.1–37.3; O2SAT 93–98; BMI 23.5; BMI 23.6
[2024-07-15 05:43] LABS: Basophils % (Auto) 1 % (0-2.5); Eosinophils # (Auto) 0.1 Thou/mm3 (0.0-0.5); Eosinophils % (Auto) 2 % (0-10); Hematocrit 36.5 % (36.0-46.0); Hemoglobin 12.6 g/dL (12.0-16.0); Immature Granulocytes % (Auto) 0 % (0-0); Immature Granulocytes Auto 0.02 Thou/mm3 (0.00-0.00); Lymphocytes # (Auto) 1.7 Thou/mm3 (1.0-4.8); Lymphocytes % (Auto) 28 % (10-50); Mean Corpuscular HGB Conc 34.5 g/dl (31.0-37.0); Mean Corpuscular Hemoglobin 27.8 pg (25.0-35.0); Mean Corpuscular Volume 81 fL (80-100); Monocytes # (Auto) 0.8 Thou/mm3 (0.0-0.8); Monocytes % (Auto) 13 % (0-12); Neutrophils # (Auto) 3.3 Thou/mm3 (1.8-7.7); Neutrophils % (Auto) 56 % (37-80); Nucleated Red Blood Cell % 0 /100 WBC (0); Platelet Count 285 Thou/mm3 (140-440); Red Blood Count 4.53 Miln/mm3 (4.00-5.20)
[2024-07-15] MEDS: HEPARIN SOD INJ 5000 UNIT/ML VIAL SC ×3 (06:02→20:59)
[2024-07-15 06:08] LABS: Alanine Aminotransferase 23 U/L (10-49); Albumin, Serum 4.1 gm/dL (3.4-4.8); Albumin/Globulin Ratio 1.5 (1.2-2.2); Alkaline Phosphatase 53 U/L (46-116); Anion Gap 7 (7-16); Aspartate Amino Transferase 26 U/L (0-34); BUN/Creatinine Ratio 22 Ratio (12-20); Bilirubin,Total 0.4 mg/dL (0.3-1.2); Blood Urea Nitrogen 13 mg/dL (9-23); Calcium 9.4 mg/dL (8.3-10.6); Calcium (Corrected) 9.4 mg/dL (8.5-10.1); Carbon Dioxide 24.8 mMol/L (20.0-31.0); Chloride 93 mMol/L (98-107); Creatinine (Component) 0.6 mg/dL (0.6-1.3); Estimated Creatinine Clearance 45.7 mL/min (>60); Globulin 2.7 gm/dL (2.3-3.5); Glucose 123 mg/dL (74-106); Osmolality,Calculated 252 (275-295); Potassium 3.9 mMol/L (3.4-5.1); Sodium 125 mMol/L (136-145); Total Protein 6.8 gm/dL (5.7-8.2); eGFR > 60 See Note
[2024-07-15] MEDS: NIFEdipine XL 30 MG TABCR 90 MG PO (08:04)
[2024-07-15] MEDS: SENNA TABLET 1 TAB PO (08:04)
[2024-07-15] MEDS: SODIUM CHLORIDE 1 GM TABLET PO ×2 (08:05→20:50)
[2024-07-15] MEDS: LOSARTAN POTASSIUM 25 MG TABLET 100 MG PO (08:06)
[2024-07-15] MEDS: carVEDILOL 12.5 MG TABLET PO (08:07)
--- NOTE | 2024-07-15 08:51 | ESPR_ITS ---
Documentation for date of: 07/15/24 Subjective Subjective Interval history: The patient is an 89-year-old female with significant past medical history of type 2 diabetes mellitus not on insulin, resistant hypertension on IV antihypertensive, solitary left kidney, diabetic nephropathy presented to ED with chief complaint of shakiness and generalized weakness. Patient was apparently well, but on the evening of 07/12/2024, patient started having shaking generalized body movements, and was feeling weak as per patient niece who is an registered nurse asked her to check her blood pressure which was systolic 80s/diastolic 40s. The patient had mild lightheadedness, but did not lose consciousness. She was recently started on nifedipine 90 Mg extended release p.o. daily hydralazine 50 Mg 3 times daily, and e commerce strategist Dr. Sultana added hydrochlorothiazide 12.5 Mg p.o. daily. She has been already taking her clonidine 0.2 Mg p.o. 3 times daily and losartan 100 Mg p.o. daily for resistant hypertension. She denies any headache, nausea or vomiting, chest pain or SOB, abdominal pain, any changes in bowel or bladder habit or leg swelling. During our evaluation, patient was mildly hypertensive, other vitals stable. CBC was fairly stable with hemoglobin 11.6, and chemistry panel significant for sodium 124, potassium 3.7, creatinine 0.7, blood sugar 146, and phosphorus 3.4. PMH: As mentioned above SHX: Right nephrectomy Medications: As mentioned above and metformin for diabetes mellitus Family history: Noncontributory Social history: Denies smoking, alcohol or any illicit drug use Allergies: No known allergies Nephrology consultation was done for further management of hyponatremia and adjustment in blood pressure medications. 07/14/2024: Was interviewed and examined at the bedside this morning. She reported doing well. Her vitals were fairly stable with blood pressure 176/74 and pulse rate 108. Physical examination was unremarkable. She denied any lightheadedness, headache, chest pain or SOB, any abdominal pain, nausea or vomiting, any changes in bowel or bladder habit, or any leg swelling. CBC WNL, sodium 126, chloride 92, potassium 3.7, blood sugar 140, and calculated osmolality 254. Workup for resistant hypertension was done starting with ultrasound of renal arteries. Patient does not seem to have hyponatremia ever in the past, and hyperaldosteronism is less likely. 07/15/2024: The patient was interviewed and is examined at the bedside this morning. She reported doing well. She was mildly hypertensive with blood pressure 161/78, other vitals WNL. CBC fairly stable, sodium 125 3.9 chloride 9.3. Renal artery duplex was significant for no left renal arterial stenosis. May consider hypertensive workup as an outpatient basis. Patient will continue on carvedilol 12.5 Mg twice daily, losartan 100 Mg daily and daily, and if needed we can increase the carvedilol dose to 25 Mg twice daily. The patient was started on sodium chloride tablet 1 mg twice daily for hyponatremia. Exam Vital Signs Temp Pulse Resp BP Pulse Ox O2 Del Method 97.0 F 79 18 161/78 H 96 Room Air 07/15/24 08:00 07/15/24 08:07 07/15/24 08:00 07/15/24 08:07 07/15/24 08:00 07/15/24 08:00 Narrative Exam General: Elderly, cooperative female, no acute distress, Alert and Oriented x 3 HEENT: Moist mucous membranes, oropharynx clear Neck: Supple, No masses, No JVD CVS: S1S2 Regular rate and rhythm, No murmurs, rubs or gallops Lungs: Clear to auscultation with no accessory use, no wheeze no rhonchi Abd: Soft, NT/ND, +BS, no organomegaly Ext: No edema, warm and well perfused Skin: No rash Psych: Appropriate mood and affect Objective Labs 07/16/24 04:52 07/16/24 04:52 Labs: Laboratory Results - last 24 hr 07/15/24 04:46 WBC 6.0 RBC 4.53 Hgb 12.6 Hct 36.5 MCV 81 MCH 27.8 MCHC 34.5 RDW Std Deviation 41.0 Plt Count 285 Neut % (Auto) 56 Lymph % (Auto) 28 [place] % (Auto) 13 H Eos % (Auto) 2 Baso % (Auto) 1 Neut # (Auto) 3.3 Lymph # (Auto) 1.7 [place] # (Auto) 0.8 Eos # (Auto) 0.1 Baso # (Auto) 0.0 Immature Gran # (Auto) 0.02 H Absolute Nucleated RBC 0.00 Immature Gran % 0 Nucleated RBC % 0 Sodium 125 L Potassium 3.9 Chloride 93 L Carbon Dioxide 24.8 Anion Gap 7 BUN 13 Creatinine 0.6 Estim Creat Clear Calc 45.7 L eGFR > 60 BUN/Creatinine Ratio 22 H Glucose 123 H Calculated Osmolality 252 L Calcium 9.4 Corrected Calcium 9.4 Total Bilirubin 0.4 AST 26 ALT 23 Alkaline Phosphatase 53 Total Protein 6.8 Albumin 4.1 Globulin 2.7 Albumin/Globulin Ratio 1.5 Quality Measures Quality Measures none Advance care planning discussed with:: patient Assessment & Plan Assessment Current Active Medications: Generic Name Dose Route Start Last Admin Trade Name Freq PRN Reason Stop Dose Admin Acetaminophen 650 mg 07/12/24 17:25 Acetaminophen 325 Mg Tablet PO 08/11/24 17:24 Q6H PRN Pain 1-3 and/or Fever >100.1 Carvedilol 25 mg 07/15/24 17:30 Carvedilol 12.5 Mg Tablet PO 08/14/24 17:29 BIDWM JOE Dextrose 25 ml 07/12/24 17:39 Dextrose 50%-Water Inj 50 Ml Syringe IV 08/11/24 17:38 Q15MIN PRN BG 50-70 responsive npo pt Dextrose 50 ml 07/12/24 17:39 Dextrose 50%-Water Inj 50 Ml Syringe IV 08/11/24 17:38 Q15MIN PRN BG <50 OR BG <70 & pt unresponsive Glucagon 1 mg 07/12/24 17:39 Glucagon Inj 1 Mg Vial IM Q15MIN PRN BG <70, and no IV access Heparin Sodium (Porcine) 5,000 unit 07/12/24 22:00 07/15/24 06:02 Heparin Sod Inj 5000 Unit/Ml Vial SC 07/26/24 21:59 5,000 unit Q8HR JOE Administration Sodium Chloride 500 mls @ 100 mls/hr 07/15/24 08:06 Ns IV 08/14/24 08:05 .Q5H [facility] Insulin Human Lispro 0 unit 07/12/24 23:18 07/15/24 07:37 Insulin Lispro (Admelog) 1 Unit/0.01 Ml Unit SC 08/11/24 20:59 Not Given ACHS [facility] Protocol Losartan Potassium 100 mg 07/13/24 13:30 07/15/24 08:06 Losartan Potassium 25 Mg Tablet PO 08/12/24 13:29 100 mg QDAY JOE Administration Nifedipine 90 mg 07/13/24 09:00 07/15/24 08:04 Nifedipine Xl 30 Mg Tabcr PO 08/12/24 08:59 90 mg QDAY JOE Administration Ondansetron HCl 4 mg 07/12/24 17:25 Ondansetron Inj 2 Mg/Ml Inj 2 Ml IV 08/11/24 17:24 Q6H PRN NAUSEA OR VOMITING Protocol Sennosides 1 tab 07/13/24 09:00 07/15/24 08:04 Senna Tablet PO 08/12/24 08:59 1 tab QDAY JOE Administration Protocol Sodium Chloride 1 gm 07/15/24 09:00 07/15/24 08:05 Sodium Chloride 1 Gm Tablet PO 08/14/24 08:59 1 gm BID JOE Administration Plan The patient is an 89-year-old female with significant past medical history of type 2 diabetes mellitus not on insulin, resistant hypertension on IV antihypertensive, solitary left kidney, diabetic nephropathy presented to ED with chief complaint of shakiness and generalized weakness was found to have hypotensive at home. Nephrology consultation was done for further management of hyponatremia and adjustment in blood pressure medications. #Acute Severe hypoosmolar euvolemic hyponatremia, improving Likely excessive sodium excretion due to hydrochlorothiazide use Patient presented with sodium level of 119, on 07/14/2024 sodium level was 126 Patient's seemed fairly stable without any neurological abnormalities, alert and oriented x 3 07/15/2024: Sodium 125 -Started on 1 g sodium chloride tablet twice daily -Avoid using hydrochlorothiazide any further -Continue to monitor sodium daily #Resistant hypertension Currently blood pressure is mildly hypertensive -Continue with nifedipine extended release 90 Mg daily -Continue with losartan 100 Mg daily -Started on Coreg 12.5 Mg twice daily, may increase up to 25 Mg twice daily -Recommended to slowly add all other home medications except hydrochlorothiazide to stabilize the blood pressure -US renal artery ordered no left renal arterial stenosis. Further hypertensive workup can be done as an outpatient basis. -Continue to monitor blood pressure #Solitary L Kidney Right nephrectomy in the past, patient stated that seems to have hematuria and once recommended to remove right kidney -Avoid nephrotoxic drugs -Proper diabetes and blood pressure management #Type 2 diabetes mellitus, non-insulin #Diabetic neuropathy -Management deferred to primary hospitalist team Thank you for your opportunity to participate nephrology team in this patient care. The patient's management plan was discussed with my attending physician MD Fredo Mccarthy MD, PGY2 Attending Provider Attestation/Addendum Patient seen and examined with resident physician Dr. Back. Note reviewed, agree with findings and recommendations. Patient with hypovolemic hyponatremia. Slowly improving. Held hydrochlorothiazide. On fluid restriction. Blood pressure on the higher side-spoke to primary team to add beta-blockers.
[2024-07-15] MEDS: SODIUM CHLORIDE 0.9% 500 ML 500 ML 100 ML IV (08:52)
[2024-07-15 12:52] LABS: Anion Gap 4 (7-16); BUN/Creatinine Ratio 23 Ratio (12-20); Blood Urea Nitrogen 16 mg/dL (9-23); Calcium 9.4 mg/dL (8.3-10.6); Carbon Dioxide 26.4 mMol/L (20.0-31.0); Chloride 97 mMol/L (98-107); Creatinine (Component) 0.7 mg/dL (0.6-1.3); Estimated Creatinine Clearance 41.1 mL/min (>60); Glucose 113 mg/dL (74-106); Osmolality,Calculated 257 (275-295); Sodium 127 mMol/L (136-145); eGFR > 60 See Note
--- NOTE | 2024-07-15 14:19 | ESPR_ITS ---
Documentation for date of: 07/15/24 Subjective Subjective Interval history: 07/15/2024: No acute overnight events to report. Patient had ultrasound renal completed which showed no signs of renal artery stenosis. Patient's sodium is being continually monitored and last value was 127, stable. Patient's antihypertensive medications adjusted with increase in Coreg dose as noted below. Patient will likely be discharged on 07/16 if she remains asymptomatic and laboratory values are reassuring. Exam Vital Signs Temp Pulse Resp BP Pulse Ox O2 Del Method 97.0 F 70 18 123/65 93 L Room Air 07/15/24 12:00 07/15/24 12:00 07/15/24 12:00 07/15/24 12:00 07/15/24 12:07/15/24 12:00 Narrative Exam General: Elderly, cooperative female, no acute distress, Alert and Oriented x 3 HEENT: Moist mucous membranes, oropharynx clear Neck: Supple, No masses, No JVD CVS: S1S2 Regular rate and rhythm, No murmurs, rubs or gallops Lungs: Clear to auscultation with no accessory use, no wheeze no rhonchi Abd: Soft, NT/ND, +BS, no organomegaly Ext: No edema, warm and well perfused Skin: No rash Psych: Appropriate mood and affect Objective Labs 07/15/24 04:46 07/15/24 12:27 Labs: Laboratory Results - last 24 hr 07/15/24 07/15/24 04:46 12:27 WBC 6.0 RBC 4.53 Hgb 12.6 Hct 36.5 MCV 81 MCH 27.8 MCHC 34.5 RDW Std Deviation 41.0 Plt Count 285 Neut % (Auto) 56 Lymph % (Auto) 28 [place] % (Auto) 13 H Eos % (Auto) 2 Baso % (Auto) 1 Neut # (Auto) 3.3 Lymph # (Auto) 1.7 [place] # (Auto) 0.8 Eos # (Auto) 0.1 Baso # (Auto) 0.0 Immature Gran # (Auto) 0.02 H Absolute Nucleated RBC 0.00 Immature Gran % 0 Nucleated RBC % 0 Sodium 125 L 127 L Potassium 3.9 4.0 Chloride 93 L 97 L Carbon Dioxide 24.8 26.4 Anion Gap 7 4 L BUN 13 16 Creatinine 0.6 0.7 Estim Creat Clear Calc 45.7 L 41.1 L eGFR > 60 > 60 BUN/Creatinine Ratio 22 H 23 H Glucose 123 H 113 H Calculated Osmolality 252 L 257 L Calcium 9.4 9.4 Corrected Calcium 9.4 Total Bilirubin 0.4 AST 26 ALT 23 Alkaline Phosphatase 53 Total Protein 6.8 Albumin 4.1 Globulin 2.7 Albumin/Globulin Ratio 1.5 Quality Measures Quality Measures none Advance care planning discussed with:: patient Assessment & Plan Assessment Current Active Medications: Generic Name Dose Route Start Last Admin Trade Name Freq PRN Reason Stop Dose Admin Acetaminophen 650 mg 07/12/24 17:25 Acetaminophen 325 Mg Tablet PO 08/11/24 17:24 Q6H PRN Pain 1-3 and/or Fever >100.1 Carvedilol 25 mg 07/15/24 17:30 Carvedilol 12.5 Mg Tablet PO 08/14/24 17:29 BIDWM JOE Dextrose 25 ml 07/12/24 17:39 Dextrose 50%-Water Inj 50 Ml Syringe IV 08/11/24 17:38 Q15MIN PRN BG 50-70 responsive npo pt Dextrose 50 ml 07/12/24 17:39 Dextrose 50%-Water Inj 50 Ml Syringe IV 08/11/24 17:38 Q15MIN PRN BG <50 OR BG <70 & pt unresponsive Glucagon 1 mg 07/12/24 17:39 Glucagon Inj 1 Mg Vial IM Q15MIN PRN BG <70, and no IV access Heparin Sodium (Porcine) 5,000 unit 07/12/24 22:00 07/15/24 06:02 Heparin Sod Inj 5000 Unit/Ml Vial SC 07/26/24 21:59 5,000 unit Q8HR JOE Administration Sodium Chloride 500 mls @ 100 mls/hr 07/15/24 08:06 07/15/24 08:52 Ns IV 08/14/24 08:05 100 mls/hr .Q5H JOE Administration Insulin Human Lispro 0 unit 07/12/24 23:18 07/15/24 13:06 Insulin Lispro (Admelog) 1 Unit/0.01 Ml Unit SC 08/11/24 20:59 Not Given ACHS JOE Protocol Losartan Potassium 100 mg 07/13/24 13:30 07/15/24 08:06 Losartan Potassium 25 Mg Tablet PO 08/12/24 13:29 100 mg QDAY JOE Administration Nifedipine 90 mg 07/13/24 09:00 07/15/24 08:04 Nifedipine Xl 30 Mg Tabcr PO 08/12/24 08:59 90 mg QDAY JOE Administration Ondansetron HCl 4 mg 07/12/24 17:25 Ondansetron Inj 2 Mg/Ml Inj 2 Ml IV 08/11/24 17:24 Q6H PRN NAUSEA OR VOMITING Protocol Sennosides 1 tab 07/13/24 09:00 07/15/24 08:04 Senna Tablet PO 08/12/24 08:59 1 tab QDAY JOE Administration Protocol Sodium Chloride 1 gm 07/15/24 09:00 07/15/24 08:05 Sodium Chloride 1 Gm Tablet PO 08/14/24 08:59 1 gm BID JOE Administration Plan 89-year-old female with past medical history of type 2 diabetes not on insulin, solitary left kidney, diabetic nephropathy, resistant hypertension on 5 antihypertensives presenting for shakiness will be admitted for treatment of hyponatremia along with management of antihypertensive medication and likely workup for resistant pretension. #Acute hyponatremia, improving Per HPI, patient has been taking 5 different antihypertensive medications Had episode of shakiness and low blood pressure at home per HPI Patient denies having any concerning symptoms such as loss of consciousness, sick contacts, fever/chills, nausea/vomiting/diarrhea Patient follows Dr. Tracy nephrology and Dr. Sultana cardiology and was recently started on 3 new blood pressure medications In the ED, patient was hypertensive and hyponatremic and started on 40 cc/h of normal saline Completed 1L NS IVF on 07/12/24, current Na at 125 Patient sodium stable at 127 Plan: Monitor with morning labs Dr. Tracy, nephrology has been consulted appreciate recommendations #Resistant hypertension Patient is on 5 different antihypertensive medications as listed above U/S Renal shows no signs of renal artery stenosis Plan: Increased Coreg to 25 mg po bid Restarted nifedipine ER 90 mg, patient's home dose Restarted Losartan 100 mg home med Will hold remaining antihypertensives; consider restarting when more stable #Type 2 diabetes mellitus, non-insulin #Diabetic neuropathy Patient has history of type 2 diabetes with complications, diabetic nephropathy A1c elevated at 6.7 on 06/12/2024 Patient is not taking insulin at home, on metformin Plan: Slight scale insulin #Solitary L Kidney Patient has history of right nephrectomy When asked, patient's family is unsure exactly why it was removed but they state that she had hematuria Plan: Avoid nephrotoxic agents Hospital Management: Lines: PIV Diet: Cardiac Bowel: Senna GI prophylaxis: not needed DVT prophylaxis: Heparin subq Dispo: Antihypertensive management; monitoring sodium Code: Full Patient seen and examined with attending Dr. Katarzyna Gaitan, PGY-1
[2024-07-15] MEDS: carVEDILOL 12.5 MG TABLET 25 MG PO (17:35)
[2024-07-15] MEDS: INSULIN LISPRO (AdmeLOG) 1 UNIT/0.01 ML UNIT SC (20:50)
[2024-07-15] MEDS: DiphenhydrAMINE ELIX 25 MG/10 ML UDC PO (23:49)
[2024-07-16] VITALS (10 sets, daily range): BP systolic 140–174; BP diastolic 66–79; PULSE 61–82; RESP 12–19; TEMP 36.1–37.1; O2SAT 95–98; BMI 23.6
[2024-07-16] MEDS: hydrOXYzine HCL 25 MG TABLET PO (02:42)
[2024-07-16 05:42] LABS: Basophils % (Auto) 1 % (0-2.5); Eosinophils # (Auto) 0.1 Thou/mm3 (0.0-0.5); Eosinophils % (Auto) 2 % (0-10); Hematocrit 34.9 % (36.0-46.0); Hemoglobin 12.1 g/dL (12.0-16.0); Immature Granulocytes % (Auto) 1 % (0-0); Immature Granulocytes Auto 0.03 Thou/mm3 (0.00-0.00); Lymphocytes # (Auto) 1.3 Thou/mm3 (1.0-4.8); Lymphocytes % (Auto) 23 % (10-50); Mean Corpuscular HGB Conc 34.7 g/dl (31.0-37.0); Mean Corpuscular Hemoglobin 27.9 pg (25.0-35.0); Mean Corpuscular Volume 80 fL (80-100); Monocytes # (Auto) 0.6 Thou/mm3 (0.0-0.8); Monocytes % (Auto) 11 % (0-12); Neutrophils # (Auto) 3.6 Thou/mm3 (1.8-7.7); Neutrophils % (Auto) 62 % (37-80); Nucleated Red Blood Cell % 0 /100 WBC (0); Platelet Count 179 Thou/mm3 (140-440); RDW Standard Deviation 40.6 fL (36.4-46.3); Red Blood Count 4.34 Miln/mm3 (4.00-5.20); White Blood Count 5.8 Thou/mm3 (3.6-11.0)
[2024-07-16] MEDS: HEPARIN SOD INJ 5000 UNIT/ML VIAL SC ×2 (05:51→14:23)
[2024-07-16 06:10] LABS: Alanine Aminotransferase 29 U/L (10-49); Albumin, Serum 4.1 gm/dL (3.4-4.8); Albumin/Globulin Ratio 1.6 (1.2-2.2); Alkaline Phosphatase 52 U/L (46-116); Anion Gap 6 (7-16); Aspartate Amino Transferase 32 U/L (0-34); BUN/Creatinine Ratio 19 Ratio (12-20); Bilirubin,Total 0.3 mg/dL (0.3-1.2); Blood Urea Nitrogen 13 mg/dL (9-23); Calcium 9.2 mg/dL (8.3-10.6); Calcium (Corrected) 9.2 mg/dL (8.5-10.1); Carbon Dioxide 22.9 mMol/L (20.0-31.0); Chloride 98 mMol/L (98-107); Creatinine (Component) 0.7 mg/dL (0.6-1.3); Estimated Creatinine Clearance 41.1 mL/min (>60); Globulin 2.6 gm/dL (2.3-3.5); Glucose 182 mg/dL (74-106); Osmolality,Calculated 260 (275-295); Potassium 4.1 mMol/L (3.4-5.1); Sodium 127 mMol/L (136-145); Total Protein 6.7 gm/dL (5.7-8.2); eGFR > 60 See Note
[2024-07-16] MEDS: NIFEdipine XL 30 MG TABCR 90 MG PO (08:47)
[2024-07-16] MEDS: SENNA TABLET 1 TAB PO (08:48)
[2024-07-16] MEDS: SODIUM CHLORIDE 1 GM TABLET PO (08:48)
[2024-07-16] MEDS: LOSARTAN POTASSIUM 25 MG TABLET 100 MG PO (08:48)
[2024-07-16] MEDS: carVEDILOL 12.5 MG TABLET 25 MG PO ×2 (08:48→16:48)
--- NOTE | 2024-07-16 10:38 | ESPR_ITS ---
Documentation for date of: 07/16/24 Subjective Subjective Interval history: The patient is an 89-year-old female with significant past medical history of type 2 diabetes mellitus not on insulin, resistant hypertension on IV antihypertensive, solitary left kidney, diabetic nephropathy presented to ED with chief complaint of shakiness and generalized weakness. Patient was apparently well, but on the evening of 07/12/2024, patient started having shaking generalized body movements, and was feeling weak as per patient niece who is an registered nurse asked her to check her blood pressure which was systolic 80s/diastolic 40s. The patient had mild lightheadedness, but did not lose consciousness. She was recently started on nifedipine 90 Mg extended release p.o. daily hydralazine 50 Mg 3 times daily, and assorter laundry Dr. Sultana added hydrochlorothiazide 12.5 Mg p.o. daily. She has been already taking her clonidine 0.2 Mg p.o. 3 times daily and losartan 100 Mg p.o. daily for resistant hypertension. She denies any headache, nausea or vomiting, chest pain or SOB, abdominal pain, any changes in bowel or bladder habit or leg swelling. During our evaluation, patient was mildly hypertensive, other vitals stable. CBC was fairly stable with hemoglobin 11.6, and chemistry panel significant for sodium 124, potassium 3.7, creatinine 0.7, blood sugar 146, and phosphorus 3.4. PMH: As mentioned above SHX: Right nephrectomy Medications: As mentioned above and metformin for diabetes mellitus Family history: Noncontributory Social history: Denies smoking, alcohol or any illicit drug use Allergies: No known allergies Nephrology consultation was done for further management of hyponatremia and adjustment in blood pressure medications. 07/14/2024: Was interviewed and examined at the bedside this morning. She reported doing well. Her vitals were fairly stable with blood pressure 176/74 and pulse rate 108. Physical examination was unremarkable. She denied any lightheadedness, headache, chest pain or SOB, any abdominal pain, nausea or vomiting, any changes in bowel or bladder habit, or any leg swelling. CBC WNL, sodium 126, chloride 92, potassium 3.7, blood sugar 140, and calculated osmolality 254. Workup for resistant hypertension was done starting with ultrasound of renal arteries. Patient does not seem to have hyponatremia ever in the past, and hyperaldosteronism is less likely. 07/15/2024: The patient was interviewed and is examined at the bedside this morning. She reported doing well. She was mildly hypertensive with blood pressure 161/78, other vitals WNL. CBC fairly stable, sodium 125 3.9 chloride 9.3. Renal artery duplex was significant for no left renal arterial stenosis. May consider hypertensive workup as an outpatient basis. Patient will continue on carvedilol 12.5 Mg twice daily, losartan 100 Mg daily and daily, and if needed we can increase the carvedilol dose to 25 Mg twice daily. The patient was started on sodium chloride tablet 1 mg twice daily for hyponatremia. 07/16/2024: The patient was interviewed and examined at the bedside this morning again. She reported that overnight she was unable to sleep well. She also reported that overnight she has had palpitations, and believes that she has anxiety disorder. Her vitals were stable with blood pressure 153/66. CBC WNL, sodium improved to 127, creatinine clearance 41 which is around her baseline, GFR greater than 60, blood sugar 182. The patient can be continued on salt tablet 1 g twice daily for 1 week. Exam Vital Signs Temp Pulse Resp BP Pulse Ox O2 Del Method 98.7 F 69 19 153/66 H 95 Room Air 07/16/24 08:00 07/16/24 08:48 07/16/24 08:00 07/16/24 08:48 07/16/24 08:00 07/16/24 08:00 Narrative Exam General: Elderly, cooperative female, no acute distress, Alert and Oriented x 3 HEENT: Moist mucous membranes, oropharynx clear Neck: Supple, No masses, No JVD CVS: S1S2 Regular rate and rhythm, No murmurs, rubs or gallops Lungs: Clear to auscultation with no accessory use, no wheeze no rhonchi Abd: Soft, NT/ND, +BS, no organomegaly Ext: No edema, warm and well perfused Skin: No rash Psych: Appropriate mood and affect Objective Labs 07/16/24 04:52 07/16/24 04:52 Labs: Laboratory Results - last 24 hr 07/15/24 07/16/24 12:27 04:52 WBC 5.8 RBC 4.34 Hgb 12.1 Hct 34.9 L MCV 80 MCH 27.9 MCHC 34.7 RDW Std Deviation 40.6 Plt Count 179 D Neut % (Auto) 62 Lymph % (Auto) 23 [place] % (Auto) 11 Eos % (Auto) 2 Baso % (Auto) 1 Neut # (Auto) 3.6 Lymph # (Auto) 1.3 [place] # (Auto) 0.6 Eos # (Auto) 0.1 Baso # (Auto) 0.0 Immature Gran # (Auto) 0.03 H Absolute Nucleated RBC 0.00 Immature Gran % 1 H Nucleated RBC % 0 Sodium 127 L 127 L Potassium 4.0 4.1 Chloride 97 L 98 Carbon Dioxide 26.4 22.9 Anion Gap 4 L 6 L BUN 16 13 Creatinine 0.7 0.7 Estim Creat Clear Calc 41.1 L 41.1 L eGFR > 60 > 60 BUN/Creatinine Ratio 23 H 19 Glucose 113 H 182 H D Calculated Osmolality 257 L 260 L Calcium 9.4 9.2 Corrected Calcium 9.2 Total Bilirubin 0.3 AST 32 ALT 29 Alkaline Phosphatase 52 Total Protein 6.7 Albumin 4.1 Globulin 2.6 Albumin/Globulin Ratio 1.6 Quality Measures Quality Measures none Advance care planning discussed with:: patient Assessment & Plan Assessment Current Active Medications: Generic Name Dose Route Start Last Admin Trade Name Freq PRN Reason Stop Dose Admin Acetaminophen 650 mg 07/12/24 17:25 Acetaminophen 325 Mg Tablet PO 08/11/24 17:24 Q6H PRN Pain 1-3 and/or Fever >100.1 Carvedilol 25 mg 07/15/24 17:30 07/16/24 08:48 Carvedilol 12.5 Mg Tablet PO 08/14/24 17:29 25 mg BIDWM JOE Administration Dextrose 25 ml 07/12/24 17:39 Dextrose 50%-Water Inj 50 Ml Syringe IV 08/11/24 17:38 Q15MIN PRN BG 50-70 responsive npo pt Dextrose 50 ml 07/12/24 17:39 Dextrose 50%-Water Inj 50 Ml Syringe IV 08/11/24 17:38 Q15MIN PRN BG <50 OR BG <70 & pt unresponsive Glucagon 1 mg 07/12/24 17:39 Glucagon Inj 1 Mg Vial IM Q15MIN PRN BG <70, and no IV access Heparin Sodium (Porcine) 5,000 unit 07/12/24 22:00 07/16/24 05:51 Heparin Sod Inj 5000 Unit/Ml Vial SC 07/26/24 21:59 5,000 unit Q8HR JOE Administration Sodium Chloride 500 mls @ 100 mls/hr 07/15/24 08:06 07/15/24 17:24 Ns IV 08/14/24 08:05 Not Given .Q5H JOE Insulin Human Lispro 0 unit 07/12/24 23:18 07/16/24 08:49 Insulin Lispro (Admelog) 1 Unit/0.01 Ml Unit SC 08/11/24 20:59 Not Given ACHS JOE Protocol Losartan Potassium 100 mg 07/13/24 13:30 07/16/24 08:48 Losartan Potassium 25 Mg Tablet PO 08/12/24 13:29 100 mg QDAY JOE Administration Nifedipine 90 mg 07/13/24 09:00 07/16/24 08:47 Nifedipine Xl 30 Mg Tabcr PO 08/12/24 08:59 90 mg QDAY JOE Administration Ondansetron HCl 4 mg 07/12/24 17:25 Ondansetron Inj 2 Mg/Ml Inj 2 Ml IV 08/11/24 17:24 Q6H PRN NAUSEA OR VOMITING Protocol Sennosides 1 tab 07/13/24 09:00 07/16/24 08:48 Senna Tablet PO 08/12/24 08:59 1 tab QDAY JOE Administration Protocol Sodium Chloride 1 gm 07/15/24 09:00 07/16/24 08:48 Sodium Chloride 1 Gm Tablet PO 08/14/24 08:59 1 gm BID JOE Administration Plan The patient is an 89-year-old female with significant past medical history of type 2 diabetes mellitus not on insulin, resistant hypertension on IV antihypertensive, solitary left kidney, diabetic nephropathy presented to ED with chief complaint of shakiness and generalized weakness was found to have hypotensive at home. Nephrology consultation was done for further management of hyponatremia and adjustment in blood pressure medications. #Acute Severe hypoosmolar euvolemic hyponatremia, improving Likely excessive sodium excretion due to hydrochlorothiazide use Patient presented with sodium level of 119, on 07/14/2024 sodium level was 126 Patient's seemed fairly stable without any neurological abnormalities, alert and oriented x 3 07/15/2024: Sodium 125 07/16/2024: Sodium 127 -Started on 1 g sodium chloride tablet twice daily -Recommended to prescribe sodium tablet 1 g twice daily for 1 week during discharge. -Avoid using hydrochlorothiazide any further -Continue to monitor sodium daily #Resistant hypertension Currently blood pressure is mildly hypertensive -Continue with nifedipine extended release 90 Mg daily -Continue with losartan 100 Mg daily -Started on Coreg 25 Mg twice daily -Recommended to slowly add all other home medications except hydrochlorothiazide to stabilize the blood pressure -US renal artery ordered no left renal arterial stenosis. Further hypertensive workup can be done as an outpatient basis. -Continue to monitor blood pressure #Solitary L Kidney Right nephrectomy in the past, patient stated that seems to have hematuria and once recommended to remove right kidney -Avoid nephrotoxic drugs -Proper diabetes and blood pressure management #Type 2 diabetes mellitus, non-insulin #Diabetic neuropathy -Management deferred to primary hospitalist team Thank you for your opportunity to participate nephrology team in this patient care. The patient's management plan was discussed with my attending physician MD Fredo Mccarthy MD, PGY2 Attending Provider Attestation/Addendum Patient seen and examined with resident physician Dr. Back. Note reviewed, agree with findings and recommendations. Patient with hypovolemic hyponatremia. Slowly improving. Held hydrochlorothiazide. On fluid restriction. Blood pressure on the higher side-spoke to primary team to add beta-blockers. Patient complaining of extreme anxiety. Recommended Atarax as needed. Renal [place] stable for discharge.
--- NOTE | 2024-07-16 10:43 | PC.SS ---
Addendum entered by Charmaine Carvajal 07/16/24 11:32: SS has sent inquiry using [employer]. PT notes are pending for insurance authorization. Original Note: Per bedside nurse, Bernadette pt is not psych, anxiety, or depression medications. PASRR assessment is completed. SS met with pt, sister, and brother in law to discuss verbal d/c options for home or SNF. Pt and family are requesting SNF and their choice is [facility]. They refuse [facility] or [facility]. Pt and family are aware patient's health insurance requires for pt to work with PT for insurance authorization. Family is aware pt requires to have skilled need to qualify for SNF.
--- NOTE | 2024-07-16 13:49 | ESDS_ITS ---
<Statement entered by Carlos Bear MD - 07/17/24 14:57> I discussed with and supervised the application development intern physician involved in the care of this patient. Patient assessment and plan was discussed with entire medicine team, including my attending. I agree with the assessment and plan as documented by application development intern doctor. Patient care was discussed with my attending physician Dr. Kadi Bear, PGY-2 Planned Discharge Date 07/16/24 DS: Providers Provider Date of admission: 07/12/24 17:25 Primary care physician: Isak Tracy MD Admitting Provider: Jodi Colón MD Attending Provider on Admission: Jodi Colón MD Consults: 07/12/24 17:43 Consult to Nephrology Routine Comment: Consulting Provider: Isak Tracy 07/16/24 10:42 Referral Physical Therapy Routine Comment: Physician Instructions: Attending Provider on DC: Chandu Gaitan MD Discharging Provider: Chandu Gaitan MD DS: Diagnosis Problem List Completed Was Problem List Reviewed/Reconciled?: Yes Hospital Course Hospital Course Hospital course: 89-year-old female with past medical history of type 2 diabetes [id number], diabetic nephropathy, resistant hypertension, solitary left kidney presenting to the ED on 07/12 secondary to having an episode of hypotension secondary to resistant hypertension requiring 5 medications. Patient apparently checked blood pressure at home which was low; was told to drink excessive water which caused her to become shaky and feeling unwell. In the ED, patient was found to be severely hyponatremic with a sodium of 119. Patient was admitted for hyponatremia management along with medication reconciliation regarding blood pressure. Nephrology, Dr. Tracy, was consulted and provided recommendations regarding IV fluid resuscitation. Ultrasound of the kidneys were obtained to rule out any renal artery stenosis secondary to resistant hypertension. Ultrasound was negative for any signs of renal artery stenosis. Patient's blood pressure care medications were changed; she was started on Coreg 25 mg p.o. twice daily and hydralazine, hydrochlorothiazide and clonidine were held and discontinued furthermore. Patient will be discharged with the following strict instructions. Please start taking carvedilol 25 mg p.o. twice daily Please stop taking clonidine, hydralazine and hydrochlorothiazide Follow-up with your PCP within 1 to 2 weeks after discharge If your symptoms worsen or if you develop new and/or worsening chest pain, shortness of breath or dizziness - please come back to the ED immediately. Hospital Diagnosis #Acute hyponatremia, improving #Resistant hypertension #Type 2 diabetes mellitus, non-insulin #Diabetic neuropathy #Solitary L Kidney Chandu Arnie, PGY-1 Status at Discharge Overall status at discharge: patient is progressing back to baseline Time Spent with Patient Time attestation: Total time spent providing and/or coordinating discharge services: 45 minutes Time spent: Greater than 30 minutes Exam Vital Signs Temp Pulse Resp BP Pulse Ox O2 Del Method 98.8 F 61 14 145/71 H 96 Room Air 07/16/24 12:00 07/16/24 12:07/16/24 12:07/16/24 12:07/16/24 12:07/16/24 12:00 Narrative Exam General: Elderly, cooperative female, no acute distress, Alert and Oriented x 3 HEENT: Moist mucous membranes, oropharynx clear Neck: Supple, No masses, No JVD CVS: S1S2 Regular rate and rhythm, No murmurs, rubs or gallops Lungs: Clear to auscultation with no accessory use, no wheeze no rhonchi Abd: Soft, NT/ND, +BS, no organomegaly Ext: No edema, warm and well perfused Skin: No rash Psych: Appropriate mood and affect Discharge Plan Plan Patient Disposition: HOME (Self Care) Patient condition on transfer: Stable Care Plan Goals: Please start taking carvedilol 25 mg p.o. twice daily Please stop taking clonidine, hydralazine and hydrochlorothiazide Follow-up with your PCP within 1 to 2 weeks after discharge If your symptoms worsen or if you develop new and/or worsening chest pain, shortness of breath or dizziness - please come back to the ED immediately. Prescriptions/Referrals Prescriptions/Med Rec: New carvedilol 12.5 mg Tablet 25 mg PO BIDWM 30 Days Qty: 60 0RF Continued naproxen [Naprosyn] 500 mg tablet 500 mg PO BID PRN (Reason: pain) Qty: 20 0RF metformin 500 mg Tablet 500 mg PO BID losartan 100 mg Tablet 100 mg PO QDAY aspirin 325 mg Tablet 325 mg PO QDAY nifedipine 90 mg tablet extended release 90 mg PO DAILY Patient Comments: TAKE 1 TABLET BY MOUTH EVERY DAY Discontinued clonidine HCl 0.2 mg tablet 0.2 mg PO TID Patient Comments: TAKE 1 TABLET BY MOUTH THREE TIMES A DAY hydralazine 50 mg tablet 50 mg PO TID Patient Comments: TAKE 1 TABLET BY MOUTH TWICE A DAY hydrochlorothiazide 12.5 mg tablet 12.5 mg PO DAILY Patient Comments: TAKE 1 TABLET BY MOUTH EVERY DAY Referrals: Isak Tracy MD [Primary Care Provider] - Patient/Caregiver Discharge Instructions Education Materials: Managing High Blood Pressure with the DASH Diet, DASH Plan Eat Heart Healthy Food, Hyponatremia Dc Print Language: Tamazight Stand Alone Forms: Vicky Award Info., Patient Portal Info Letter Discharge Order Discharge Orders: Discharge (Routine); Ordered 07/16/24 Ordered By: Chandu Gaitan Quality Discharge Quality Measures VTE prophylaxis MD Attestestation MD Attestation I attest that I was physically present for the evaluation, physical examination, lab and imaging review of the patient with the residents. I discussed the case with the residents and agree with the findings and plans of care as documented above. Patient is an 89 years old female initially admitted for management of acute hyponatremia with initial sodium of 119. Nephrology was consulted, patient re ceived IV hydration, salt tablets with improvement on sodium level. At bedside today, patient appears comfortable, does not have any new complaints, saturating well on room air. Sodium level continues to be stable at 127 today. We will discharge patient home. We will hold clonidine, hydralazine and hydrochlorothiazide for now. Patient advised to follow-up with PCP and nephrology, have her renal panel checked in 1 week. She will also need to have her blood pressure rechecked and adjust her medications as needed. Gaetano Wallis MD
--- NOTE | 2024-07-16 16:03 | PC.SS ---
SS has reviewed Medicare rights with pt and her sister again. Per Puja from PT, pt is independent ambulating. SS followed up with pt and sister to inform them insurance will not authorize if she is independent. SS informed sister they can pay privately for SNF if pt does not qualify. Pt and sister refused. Pt will return home at d/c. Bedside nurse, Janneth is aware. Pt and sister are requesting to speak with Dr. Pretty. SS has informed physician.
--- NOTE | 2024-07-16 17:00 | PC.PT ---
PT eval only. Patient is I with transfers and ambulation without AD.
== END 2024-07-16 18:15 | disposition home or self-care (01) | DRG 641 ==
LOC: SERX 16:36 → SERHOLD 17:36 → S2NX 21:54
PROVIDERS: Internal Medicine; Nurse Practitioner Primary Care; Student in an Organized Health Care Education/Training Program; Admitting Provider Internal Medicine; Emergency Provider Emergency Medicine; PCP Internal Medicine; Visit Provider Internal Medicine
DX: E87.1 Hypo-osmolality and hyponatremia (principal); Z90.5 Acquired absence of kidney; E11.21 Type 2 diabetes mellitus with diabetic nephropathy; I1A.0 Resistant hypertension; E11.40 Type 2 diabetes mellitus with diabetic neuropathy, unspecified; F41.9 Anxiety disorder, unspecified; I10 Essential (primary) hypertension; E86.1 Hypovolemia; E83.42 Hypomagnesemia; Z79.84 Long term (current) use of oral hypoglycemic drugs; Z79.899 Other long term (current) drug therapy
CPT/HCPCS: 36415; 71045; 80048; 80053; 80069; 81001; 83690; 83735; 83880; 84100; 84295; 84443; 84484; 85025; 85610; 93005; 93975; 96361; 96365; 96372; 97162; 99285; J0360; J1643; J1815; J3475; J3490; J7030; J7040; A9270

== ENCOUNTER → 2024-07-18 | Outpatient (CLI) | payer MEDICARE, MEDICAID, SELFPAY ==
--- NOTE | 2024-07-18 14:30 | XR_ITS ---
Examination: Retroperitoneal ultrasound, complete Technique: Multiple high resolution grayscale images of the retroperitoneum obtained, including kidneys and bladder. Exam date and time:July 18, 2024 1500 hours INDICATIONS: Elevated blood pressure, renal cancer history with right nephrectomy FINDINGS: Absent right kidney Left kidney 11.2 x 5.0 x 4.6 cm cortex 2.9 cm Moderate renal parenchymal scar formation Midpole cyst 11 mm lateral cyst 9 mm No hydronephrosis No solid renal mass lesion No bladder mass Bladder prevoid volume 63 cc postvoid volume 0 cc IMPRESSION: Absent right kidney Moderate left renal parenchymal scar formation
== END | disposition home or self-care (01) ==
PROVIDERS: PCP Internal Medicine; Referring Provider Internal Medicine; Visit Provider Internal Medicine
DX: N28.89 Other specified disorders of kidney and ureter (principal); Z90.5 Acquired absence of kidney
CPT/HCPCS: 76770

== ENCOUNTER → 2024-09-30 | Outpatient (CLI) | payer MEDICARE, SELFPAY ==
[2024-09-30 09:45] LABS: Basophils # (Auto) 0.1 Thou/mm3 (0.0-0.2); Basophils % (Auto) 1 % (0-2.5); Eosinophils # (Auto) 0.2 Thou/mm3 (0.0-0.5); Eosinophils % (Auto) 4 % (0-10); Hematocrit 40.4 % (36.0-46.0); Hemoglobin 13.5 g/dL (12.0-16.0); Immature Granulocytes % (Auto) 0 % (0-0); Immature Granulocytes Auto 0.02 Thou/mm3 (0.00-0.00); Lymphocytes # (Auto) 1.5 Thou/mm3 (1.0-4.8); Lymphocytes % (Auto) 31 % (10-50); Mean Corpuscular HGB Conc 33.4 g/dl (31.0-37.0); Mean Corpuscular Volume 84 fL (80-100); Monocytes # (Auto) 0.5 Thou/mm3 (0.0-0.8); Monocytes % (Auto) 11 % (0-12); Neutrophils # (Auto) 2.4 Thou/mm3 (1.8-7.7); Neutrophils % (Auto) 52 % (37-80); Nucleated Red Blood Cell % 0 /100 WBC (0); Platelet Count 298 Thou/mm3 (140-440); Red Blood Count 4.82 Miln/mm3 (4.00-5.20); White Blood Count 4.6 Thou/mm3 (3.6-11.0)
[2024-09-30 09:58] LABS: Glucose Estimated Average 126 mg/dL (80-131)
[2024-09-30 10:16] LABS: Collection Type, Urine Clean Catch
[2024-09-30 10:29] LABS: Alanine Aminotransferase 12 U/L (10-49); Albumin, Serum 4.3 gm/dL (3.4-4.8); Albumin/Globulin Ratio 1.5 (1.2-2.2); Alkaline Phosphatase 45 U/L (46-116); Anion Gap 7 (7-16); Aspartate Amino Transferase 18 U/L (0-34); BUN/Creatinine Ratio 19 Ratio (12-20); Bilirubin,Total 0.5 mg/dL (0.3-1.2); Blood Urea Nitrogen 13 mg/dL (9-23); Calcium 9.4 mg/dL (8.3-10.6); Calcium (Corrected) 9.4 mg/dL (8.5-10.1); Carbon Dioxide 29.9 mMol/L (20.0-31.0); Chloride 92 mMol/L (98-107); Creatinine (Component) 0.7 mg/dL (0.6-1.3); Globulin 2.9 gm/dL (2.3-3.5); Glucose 111 mg/dL (74-106); Osmolality,Calculated 260 (275-295); Potassium 3.8 mMol/L (3.4-5.1); Sodium 129 mMol/L (136-145); Thyroid Stimulating Hormone 2.21 uIU/mL (0.55-4.78); Total Protein 7.2 gm/dL (5.7-8.2); eGFR > 60 See Note
[2024-09-30 10:41] LABS: Bilirubin,Urine Negative (Negative); Blood,Urine Negative (Negative); Clarity,Urine Clear (Clear/Hazy); Color,Urine Colorless (Lt Yel-Yel); Glucose, Urine Negative (Negative); Ketones,Urine Negative (Negative); Leukocyte Esterase,Urine Negative (Negative); Nitrite,Urine Negative (Negative); Protein,Urine 1+ (Neg - Trace); RBC,Urine 1 /hpf (0-3); Specific Gravity,Urine 1.011 (1.001-1.035); Squamous Epithelial Cell,Urine < 1 /hpf (0-5); Urobilinogen,Urine Negative mg/dL (0.0-1.0); WBC,Urine < 1 /hpf (0-5)
[2024-09-30 10:56] LABS: Creatinine MALB Rnd Ur 36 mg/dL (30-125); Microalbumin Creat Ratio 797 mg/gCrea (<30); Microalbumin, Random Urine 287 mg/L (0-300)
[2024-09-30 12:15] LABS: Cardiac Risk Estimate 4.4 RATIO (3.7-5.6); Cholesterol 209 mg/dL (132-200); HDL Cholesterol 47 mg/dL (40-60); LDL Cholesterol,Calculated 133 mg/dL (0-130); Triglycerides 146 mg/dL (30-150)
== END | disposition home or self-care (01) ==
PROVIDERS: PCP Internal Medicine; Referring Provider Internal Medicine; Visit Provider Internal Medicine
DX: I10 Essential (primary) hypertension (principal); E11.9 Type 2 diabetes mellitus without complications; E78.5 Hyperlipidemia, unspecified
CPT/HCPCS: 36415; 80053; 80061; 81001; 82043; 82570; 83036; 84443; 85025

== ENCOUNTER → 2024-10-28 | Outpatient (CLI) | payer MEDICARE, SELFPAY ==
[2024-10-28 10:12] LABS: Albumin, Serum 4.5 gm/dL (3.4-4.8); Anion Gap 11 (7-16); BUN/Creatinine Ratio 23 Ratio (12-20); Blood Urea Nitrogen 18 mg/dL (9-23); Calcium 9.4 mg/dL (8.3-10.6); Calcium (Corrected) 9.4 mg/dL (8.5-10.1); Carbon Dioxide 31.4 mMol/L (20.0-31.0); Chloride 96 mMol/L (98-107); Creatinine (Component) 0.8 mg/dL (0.6-1.3); Glucose 111 mg/dL (74-106); Osmolality,Calculated 278 (275-295); Phosphorous 3.9 mg/dL (2.4-5.1); Sodium 138 mMol/L (136-145); eGFR > 60 See Note
== END | disposition home or self-care (01) ==
PROVIDERS: PCP Internal Medicine; Referring Provider Internal Medicine; Visit Provider Internal Medicine
DX: I10 Essential (primary) hypertension (principal)
CPT/HCPCS: 36415; 80069